=== PATIENT | male | born 1960 | race Caucasian/White ===

== ENCOUNTER 2019-04-20 20:43 | Emergency (ER) | payer BC, MEDICAID ==
[2019-04-20] MEDS ORDERED: TENIVAC VIAL IM ONE ×2 (20:57→21:39)
[2019-04-20] MEDS ORDERED: Lactated Ringers 1,000 ML IV SCH (21:00)
[2019-04-20] MEDS ORDERED: Lactated Ringers 1,000 ML IV ONE (21:38)
--- NOTE | 2019-04-20 21:48 | ERPHSYRPT ---
- History of Present Illness Time Seen by Provider: 04/20/19 20:53 Source: patient Exam Limitations: no limitations Patient Subjective Stated Complaint: Pt states, "I was at the [facility] getting ready to go in, and I tripped on a step, lost my balance and fell and hit my head on the concrete side". Triage Nursing Assessment: pt arrived with multiple face abrasions and knot/ edema above left eye approx golf ball sized from fall this evening at [facility], hitting concrete. Wounds cleansed with NS/Hibiclens mixture. Occurred: just prior to arrival Reason for Fall: lost balance Injuries/Pain Location: head, face Loss of Consciousness: no loss of consciousness (pt was going up steps when he lost balance and fell forward hitting his face onto concrete structure. ) Allergies/Adverse Reactions: No Known Drug Allergies Allergy (Verified 08/02/14 14:13) Home Medications: No Home Meds [No Home Meds] 1 ea UD 08/02/14 [History] Hx Tetanus, Diphtheria Vaccination/Date Given: No Hx Influenza Vaccination/Date Given: No Hx Pneumococcal Vaccination/Date Given: No Immunizations Up to Date: No - Review of Systems Constitutional: No Fever, No Chills Eyes: No Symptoms Ears, Nose, & Throat: No Symptoms, Nose Pain Respiratory: No Cough, No Dyspnea Cardiac: No Chest Pain, No Edema, No Syncope Abdominal/Gastrointestinal: No Abdominal Pain, No Nausea, No Vomiting, No Diarrhea Genitourinary Symptoms: No Dysuria Musculoskeletal: No Back Pain, No Neck Pain Skin: Other (lac/abrasion to nose and cheeks), No Rash Neurological: No Dizziness, No Focal Weakness, No Sensory Changes Psychological: No Symptoms Endocrine: No Symptoms All Other Systems: Reviewed and Negative - Past Medical History Pertinent Past Medical History: Yes Neurological History: No Pertinent History ENT History: No Pertinent History Cardiac History: No Pertinent History Respiratory History: No Pertinent History Endocrine Medical History: Other Musculoskeletal History: Other GI Medical History: Hernia History: No Pertinent History Psycho-Social History: No Pertinent History Male Reproductive Disorders: No Pertinent History Other Medical History: Gout. right foot osteomylitis - Past Surgical History Past Surgical History: Yes Neuro Surgical History: No Pertinent History Cardiac: No Pertinent History Respiratory: No Pertinent History Gastrointestinal: No Pertinent History Genitourinary: No Pertinent History Musculoskeletal: Orthopedic Surgery Male Surgical History: No Pertinent History Other Surgical History: right foot wound scraping - Social History Smoking Status: Never smoker Exposure to second hand smoke: Yes Drug Use: none Patient Lives Alone: No - Nursing Vital Signs Nursing Vital Signs: Initial Vital Signs Temperature 97.8 F 04/20/19 20:55 Pulse Rate 79 04/20/19 20:55 Respiratory Rate 17 04/20/19 20:55 Blood Pressure 191/85 04/20/19 20:55 O2 Sat by Pulse Oximetry 99 04/20/19 20:55 Pain Scale Pain Intensity 5 - Audrey Coma Score Best Eye Response (Audrey): (4) open spontaneously Best Verbal Response ([place]): (5) oriented Best Motor Response ([place]): (6) obeys commands Audrey Total: 15 - Physical Exam General Appearance: no apparent distress Head Injury: active bleeding (over bridge of nose), contusions (nosse), ecchymosis, lacerations (bridge of nose, left maxilla), swelling, tenderness Eye Exam: PERRL/EOMI ENT Exam: airway nml Neck Exam: normal inspection, No tenderness Respiratory/Chest Exam: normal breath sounds, No chest tenderness, No respiratory distress Cardiovascular Exam: normal heart sounds, regular rate/rhythm Gastrointestinal Exam: soft, No tenderness, No distention, No guarding, No ecchymosis Back Exam: normal inspection, No vertebral tenderness Extremity Exam: normal inspection, normal range of motion, pelvis stable, No deformities Neurologic Exam: alert, oriented x 3, cooperative, sensation nml, No motor deficits Skin Exam: normal color, warm, dry SpO2: 99 Procedures - Laceration/Wound Repair Face Wound Location: face Wound Length (cm): 3 Wound's Depth, Shape: irregular, into subcut Wound Explored: clean Irrigated: Yes (200mL NS) Hibiclens Prep: Yes Anesthesia: local, 1% Lidocaine Volume Anesthetic (ccs): 2 Wound Repaired With: sutures Suture Size/Type: 5-0, nylon Number of Sutures: 3 Layer Closure?: No Sterile Dressing Applied?: Yes - Course Nursing assessment & vital signs reviewed: Yes - CT Exams Head CT Interpretation: Negative Maxillofacial Bones CT Interpretation: Fracture (nasal bone) Cervical Spine CT Interpretation: Negative Ordered Tests: Active Orders 24 hr Category Date Time Status Accucheck STAT Care 02/01/20 20:57 Active IV Insertion STAT Care 04/20/19 20:57 Active NPO (ED) STAT Care 04/20/19 20:57 Active CERVICAL SPINE WO CONTRAST [CT] Stat Exams 04/20/19 20:58 Taken FACIAL BONES WO CONTRAST [CT] Stat Exams 04/20/19 20:58 Taken HEAD WITHOUT CONTRAST [CT] Stat Exams 04/20/19 20:58 Taken CBC W DIFF Stat Lab 04/20/19 20:57 Completed CMP Stat Lab 04/20/19 20:57 Completed PROTIME WITH INR Stat Lab 04/20/19 20:57 Completed PTT Stat Lab 04/20/19 20:57 Completed Medication Summary Generic Name Dose Route Start Last Admin Trade Name Freq PRN Reason Stop Dose Admin Cephalexin HCl 500 mg 04/20/19 22:42 Keflex 500 Mg PO 04/20/19 22:43 STAT ONE Lactated Ringer's 1,000 mls @ 100 mls/hr 04/20/19 21:00 04/20/19 21:43 Lactated Ringers IV 05/20/19 20:59 100 mls/hr .Q10H MARJORIE Administration Discontinued Medications Generic Name Dose Route Start Last Admin Trade Name Freq PRN Reason Stop Dose Admin Tetanus/Diphtheria Toxoids Adsorbed 0.5 ml 04/20/19 20:57 04/20/19 21:43 Tenivac Vial IM 04/20/19 20:58 0.5 ml .ONCE ONE Administration Tetanus/Diphtheria Toxoids Adsorbed Confirm 04/20/19 21:39 Tenivac Vial Administered 04/20/19 21:40 Dose 0.5 ml IM .STK-MED ONE Lab/Rad Data: Laboratory Result Diagrams 04/20/19 20:57 04/20/19 20:57 Laboratory Results 04/20/19 04/20/19 04/20/19 Range/Units 20:57 20:57 20:57 WBC 10.6 H (4.0-10.5) K/mm3 RBC 5.55 (4.1-5.6) M/mm3 Hgb 15.0 (12.5-18.0) gm/dl Hct 45.2 (42-50) % MCV 81.4 (78-100) fl MCH 27.0 (26-32) pg MCHC 33.2 (32-36) g/dl RDW 14.9 H (11.5-14.0) % Plt Count 224 (150-450) K/mm3 MPV 9.9 (7.5-11.0) fl Gran % 81.6 H (36.0-66.0) % Eos # (Auto) 0.12 (0-0.5) Absolute Lymphs (auto) 1.07 (1.0-4.6) Absolute Monos (auto) 0.74 (0.0-1.3) Lymphocytes % 10.1 L (24.0-44.0) % Monocytes % 7.0 (0.0-12.0) % Eosinophils % 1.1 (0.00-5.0) % Basophils % 0.2 (0.0-0.4) % Absolute Granulocytes 8.63 H (1.4-6.9) Basophils # 0.02 (0-0.4) PT 11.5 (8.83-12.87) SECONDS INR 1.02 (0.8-3.0) APTT 30.5 (24.1-36.1) SECONDS Sodium 140 (137-145) mmol/L Potassium 4.0 (3.5-5.1) mmol/L Chloride 100 (98-107) mmol/L Carbon Dioxide 30 (22-30) mmol/L Anion Gap 14.2 (5-15) MEQ/L BUN 17 (9-20) mg/dL Creatinine 1.04 (0.66-1.25) mg/dL Estimated GFR > 60.0 ML/MIN Glucose 108 H (74-106) mg/dL Calcium 9.1 (8.4-10.2) mg/dL Total Bilirubin 0.60 (0.2-1.3) mg/dL AST 36 (17-59) U/L ALT 39 (0-50) U/L Alkaline Phosphatase 103 (38-126) U/L Serum Total Protein 8.6 H (6.3-8.2) g/dL Albumin 4.4 (3.5-5.0) g/dL - Progress Progress: improved Progress Note: 04/20/19 22:46 Pt stable. declined pain meds. No further issues. Discussed with Dr.: Other (Dr. Andres, plastics at [facility]) Will see patient in: office - Departure Departure Disposition: Home Clinical Impression: Nasal bones, open fracture, Contusion of face Condition: Good Critical Care Time: Yes Critical Care Time(excluding separately billable procedures): Critical 30-74 mins Referrals: DOCTOR,NO FAMILY [Primary Care Provider] - Additional Instructions: Dr. Andres [address] Mimi ruiz [phone] Call to make appt at first opportunity. Prescriptions: Cephalexin Mh 500 mg [Keflex 500 mg] 500 mg PO TID 10 Days #30 capsule
[2019-04-20 22:05] LABS: Absolute Neutrophil Ct (ANC) 8.63 (1.4-6.9); BASOPHIL % 0.2 % (0.0-0.4); Basophil (Absolute #) 0.02 (0-0.4); Eosinophil % 1.1 % (0.00-5.0); Eosinophil (Absolute #) 0.12 (0-0.5); Hematocrit 45.2 % (42-50); Lymphocyte (Absolute #) 1.07 (1.0-4.6); Lymphocytes % 10.1 % (24.0-44.0); Mean Cell Volume 81.4 fl (78-100); Mean Corpuscular Hgb Concent. 33.2 g/dl (32-36); Mean Platelet Volume 9.9 fl (7.5-11.0); Monocyte (Absolute #) 0.74 (0.0-1.3); Neutrophil % 81.6 % (36.0-66.0); Platelet Count 224 K/mm3 (150-450); Red Blood Count 5.55 M/mm3 (4.1-5.6); Red Cell Distribution Width 14.9 % (11.5-14.0); White Blood Count 10.6 K/mm3 (4.0-10.5)
[2019-04-20 22:10] LABS: INR 1.02 (0.8-3.0); PROTIME 11.5 SECONDS (8.83-12.87)
[2019-04-20 22:13] LABS: PTT 30.5 SECONDS (24.1-36.1)
[2019-04-20 22:14] LABS: ALBUMIN 4.4 g/dL (3.5-5.0); ALKALINE PHOSPHATASE 103 U/L (38-126); ANION GAP 14.2 MEQ/L (5-15); BLOOD UREA NITROGEN 17 mg/dL (9-20); CHLORIDE 100 mmol/L (98-107); Calcium 9.1 mg/dL (8.4-10.2); Carbon Dioxide 30 mmol/L (22-30); Creatinine 1 1.04 mg/dL (0.66-1.25); Glucose 108 mg/dL (74-106); SGOT/AST 36 U/L (17-59); SGPT/ALT 39 U/L (0-50); SODIUM 140 mmol/L (137-145); Total Protein 8.6 g/dL (6.3-8.2)
[2019-04-20] MEDS ORDERED: KEFLEX 500 MG PO ONE (22:42)
[2019-04-20] MEDS ORDERED: KEFLEX 500 MG ONE (22:57)
[2019-04-20 23:11] VITALS: BP 145/83; PULSE 74; O2SAT 97
--- NOTE | 2019-04-21 08:01 | XRAY ---
Indication: Pain and epistaxis following fall. Multiple contiguous axial images obtained through the head without contrast. Comparison: None Ventriculosulcal pattern appears symmetric. No acute intracranial hemorrhage, abnormal extra-axial fluid collection, or mass effect. Fourth ventricle is midline without hydrocephalus. Taylor-white matter differentiation preserved. Moderate-sized left supraorbital/frontal soft tissue swelling/hematoma. Remaining bony calvarium intact. CT facial bones and CT cervical spine reported separately. Impression: 1. Left supraorbital/frontal soft tissue swelling/hematoma. 2. No acute intracranial abnormalities. Comment: Preliminary interpretation was made by [facility]. No critical discrepancy.
--- NOTE | 2019-04-21 08:02 | XRAY ---
Indication: Pain and epistaxis following fall. Multiple contiguous axial images obtained through the facial bones. Sagittal and coronal reformatted images obtained. Comparison: None A few bilateral dental amalgams produces beam artifact. Mildly displaced comminuted bilateral nasal bone fractures with mild angulation to the left and soft tissue swelling. There is also mild displaced/angulated fracture of the anterior nasal septum. Overlying soft tissue swelling. No other acute fracture, suspicious bony lesions, or radiopaque foreign body. Orbits including roof, lilly, and floors are intact. Paranasal sinuses and nasal passages are clear. There is mild nasal septal deviation to the right. Moderate left supraorbital soft tissue swelling/hematoma. External auditory canal demonstrates debris/cerumen bilaterally. CT head and CT cervical spine reported separately. Impression: 1. Bilateral nasal bone and nasal septum fractures as detailed. 2. Left supraorbital soft tissue swelling/hematoma. Comment: Preliminary interpretation was made by [facility]. No critical discrepancy.
--- NOTE | 2019-04-21 08:21 | XRAY ---
Indication: Pain and epistaxis following fall. Multiple contiguous axial images obtained through the cervical spine. Sagittal and coronal reformatted images obtained. Comparison: None Axial images negative for acute fracture, suspicious bony lesions, or spinal canal stenosis. There is minimal/mild multilevel degenerative endplate spurring throughout the cervical spine. Also mild multilevel bilateral degenerative facet hypertrophy. Sagittal and coronal reformatted images demonstrates normal alignment. No acute compression fracture, subluxation, or jumped facet. Normal appearing craniocervical junction. Base of the tongue/vallecula demonstrates irregular noncalcified soft tissue opacity measuring at least 1.2 x 2.8 x 1.2 cm in greatest AP, transverse, and CC projections concerning for mass. A few small bilateral cervical lymph nodes, largest on the right measuring 1.5 x 1.1 cm. Remaining visualized noncontrasted soft tissues including on apices unremarkable. CT facial bones and CT head reported separately. Impression: 1. Negative acute fracture/subluxation. 2. Multilevel degenerative changes. 3. Irregular soft tissue mass base of tongue/vallecula. Recommend direct laryngoscopic evaluation. 4. Small bilateral cervical lymph nodes possibly reactive. Metastasis not completely excluded given above soft tissue mass. Comment: Preliminary interpretation was made by [facility] who does not report soft tissue mass. I gave telephone report to Dr. Kumar in the ER at 0807 hrs. on April 21, 2019.
== END 2019-04-20 23:24 | disposition home or self-care (01) ==
LOC: ED 20:43
DX: S02.2XXB Fracture of nasal bones, initial encounter for open fracture (principal); S00.83XA Contusion of other part of head, initial encounter; W01.198A Fall on same level from slipping, tripping and stumbling with subsequent striking against other object, initial encounter; Y93.01 Activity, walking, marching and hiking
CPT/HCPCS: 36000; 36415; 70450; 70486; 72125; 80053; 82962; 85025; 85610; 85730; 90471; 90714; 99284; 99291; A9270-GY

== ENCOUNTER 2019-08-20 19:33 | Emergency (ER) | payer MEDICAID, OTHER ==
[2019-08-20] MEDS ORDERED: Sodium Chloride 0.9% 1000 ML 1,000 ML IV STA (19:39)
[2019-08-20] MEDS ORDERED: Sodium Chloride 0.9% 1000 ML 1,000 ML ONE (19:48)
[2019-08-20 19:56] LABS: Absolute Neutrophil Ct (ANC) 4.76 (1.4-6.9); BASOPHIL % 0.3 % (0.0-0.4); Basophil (Absolute #) 0.02 (0-0.4); Eosinophil % 1.2 % (0.00-5.0); Eosinophil (Absolute #) 0.09 (0-0.5); Hematocrit 46.4 % (42-50); Hemoglobin 15.6 gm/dl (12.5-18.0); Lymphocyte (Absolute #) 1.84 (1.0-4.6); Mean Cell Volume 82.7 fl (78-100); Mean Corpuscular Hemoglobin 27.8 pg (26-32); Mean Corpuscular Hgb Concent. 33.6 g/dl (32-36); Mean Platelet Volume 9.9 fl (7.5-11.0); Monocyte (Absolute #) 0.64 (0.0-1.3); Monocytes % 8.7 % (0.0-12.0); Neutrophil % 64.8 % (36.0-66.0); Platelet Count 230 K/mm3 (150-450); Red Blood Count 5.61 M/mm3 (4.1-5.6); Red Cell Distribution Width 14.8 % (11.5-14.0); White Blood Count 7.4 K/mm3 (4.0-10.5)
[2019-08-20 20:08] LABS: ALBUMIN 4.7 g/dL (3.5-5.0); ALKALINE PHOSPHATASE 107 U/L (38-126); ANION GAP 13.8 MEQ/L (5-15); BLOOD UREA NITROGEN 12 mg/dL (9-20); CHLORIDE 106 mmol/L (98-107); Calcium 9.7 mg/dL (8.4-10.2); Carbon Dioxide 26 mmol/L (22-30); Creatinine 1 0.88 mg/dL (0.66-1.25); Glucose 103 mg/dL (74-106); Potassium 3.5 mmol/L (3.5-5.1); SGOT/AST 33 U/L (17-59); SGPT/ALT 31 U/L (0-50); SODIUM 141 mmol/L (137-145); Total Protein 8.8 g/dL (6.3-8.2)
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
[2019-08-20] MEDS ORDERED: MORPHINE SULFATE 2 MG INJ IV ONE (20:46)
[2019-08-20] MEDS ORDERED: MORPHINE SULFATE 2 MG INJ ONE (20:48)
[2019-08-20] MEDS ORDERED: Zofran 4 MG/2 ML VIAL IV ONE (20:52)
[2019-08-20] MEDS ORDERED: Zofran 4 MG/2 ML VIAL ONE (20:52)
[2019-08-20 21:47] LABS: Appearance CLEAR (CLEAR); Bacteria NONE SEEN /HPF (NEGATIVE); Bilirubin NEGATIVE (NEGATIVE); Blood NEGATIVE Ery/ul (0-5); Glucose NEGATIVE (NEGATIVE); Ketones TRACE (NEGATIVE); Leukocyte Esterase NEGATIVE (NEGATIVE); Nitrite NEGATIVE (NEGATIVE); Protein,Urine Dip NEGATIVE (Negative); Specific Gravity 1.011 (1.005-1.025); Urobilinogen NEGATIVE mg/dL (0-1); WBC 0-2 /HPF (0-5)
[2019-08-20 22:01] VITALS: BP 146/76; PULSE 86; O2SAT 98
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
== END 2019-08-20 21:57 | disposition home or self-care (01) ==
LOC: ED 19:33
DX: K13.79 Other lesions of oral mucosa (principal); V43.52XA Car driver injured in collision with other type car in traffic accident, initial encounter; Y93.89 Activity, other specified; Y92.89 Other specified places as the place of occurrence of the external cause; M54.2 Cervicalgia; M47.892 Other spondylosis, cervical region; M50.920 Unspecified cervical disc disorder, mid-cervical region, unspecified level; R59.9 Enlarged lymph nodes, unspecified
CPT/HCPCS: 36000; 36415; 72125; 80053; 81001; 85025; 93041; 96360; 96374; 96375; 99285; J2270; J2405

== ENCOUNTER 2020-10-03 13:47 | Emergency (ER) | payer OTHER ==
[2020-10-03 13:57] VITALS: O2SAT 98
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
[2020-10-03] MEDS ORDERED: Hydromorphone 1 mg/ml Injection IM ONE (14:38)
[2020-10-03] MEDS ORDERED: ZOFRAN ODT 4 MG PO ONE (14:38)
[2020-10-03] MEDS ORDERED: Hydromorphone 1 mg/ml Injection ONE (14:44)
[2020-10-03] MEDS ORDERED: ZOFRAN ODT 4 MG ONE (14:44)
[2020-10-03] MEDS ORDERED: Catapres 0.1 MG PO ONE (15:17)
[2020-10-03] MEDS ORDERED: Catapres 0.1 MG ONE (15:20)
[2020-10-03 15:39] VITALS: BP 174/99; PULSE 92
--- NOTE | 2020-10-03 19:08 | XRAY ---
Indication: Pain following fall. Multiple contiguous axial images obtained through the head without contrast. Comparison: April 20, 2019. Ventriculosulcal pattern appears symmetric with age-appropriate global atrophy. No acute intracranial hemorrhage, abnormal extra-axial fluid collection, or mass effect. Fourth ventricle is midline without hydrocephalus. Taylor-white matter differentiation preserved. Bony calvarium intact. Visualized paranasal sinuses and mastoid air cells are clear. CT facial bones and CT cervical spine reported separately. Impression: Continued negative CT head without contrast exam. Comment: Preliminary interpretation was made by [facility]. No critical discrepancy.
--- NOTE | 2020-10-03 19:13 | XRAY ---
Indication: Pain following fall. Multiple contiguous axial images obtained through the cervical spine. Sagittal and coronal reformatted images obtained. Comparison: August 20, 2019. Axial images negative for acute fracture, suspicious bony lesions, or spinal canal stenosis. Stable mild multilevel degenerative endplate spurring and mild multilevel bilateral degenerative facet hypertrophy. Sagittal and coronal reformatted images again demonstrate slight straightening cervical lordosis, positional versus paraspinal spasm. No acute compression fracture, subluxation, or jumped facet. Normal appearing craniocervical junction. Visualized soft tissues again demonstrates stable soft tissue mass base of tongue/vallecula and prominent cervical lymph nodes bilaterally. Lung apices unremarkable. CT facial bones and CT head reported separately. Impression: 1. Stable cervical lordotic straightening, positional versus paraspinal spasm. 2. Continue negative for acute fracture/subluxation. 3. Grossly stable appearing soft tissue mass base of tongue/vallecula and prominent cervical lymph nodes. Comment: Preliminary interpretation was made by [facility]. No critical discrepancy.
--- NOTE | 2020-10-03 19:16 | XRAY ---
Indication: Pain following fall. Multiple contiguous axial images obtained through the lumbar spine. Sagittal and coronal reformatted images obtained. Comparison: None. Axial images negative for acute fracture, suspicious bony lesions, or spinal canal stenosis. Incidental mild multilevel bridging/nonbridging endplate osteophytes and tiny multilevel thoracolumbar Schmorl nodes, largest superior L5. Facets are symmetric with mild L4-S1 degenerative facet arthropathy. Incidental bilateral SI joint ankylosis. Sagittal and coronal reformatted images demonstrates normal alignment with vertebral body height/disc space is maintained. No acute compression fracture or subluxation. Visualized noncontrasted soft tissues demonstrates minimal aortoiliac calcifications and minimal sigmoid diverticulosis. Impression: 1. Negative acute fracture/subluxation. 2. Incidental multilevel degenerative changes, multilevel Schmorl nodes, bilateral SI joint ankylosis, minimal aortoiliac calcifications, and minimal sigmoid diverticulosis. Comment: Preliminary interpretation was made by [facility]. No critical discrepancy.
== END 2020-10-03 15:46 | disposition home or self-care (01) ==
LOC: ED 13:47
DX: M54.5 Low back pain (principal); M54.2 Cervicalgia; W18.39XA Other fall on same level, initial encounter; Y93.01 Activity, walking, marching and hiking; Y92.89 Other specified places as the place of occurrence of the external cause; Y99.9 Unspecified external cause status; I10 Essential (primary) hypertension
CPT/HCPCS: 70450; 72125; 72131; 96372; 99284; J1170; Q0162; A9270-GY

== ENCOUNTER 2021-10-13 12:29 | Emergency (ER) | payer MEDICARE, OTHER ==
--- NOTE | 2021-10-13 14:25 | XRAY ---
Indication: Status post fall. History ALS. Multiple contiguous axial images obtained through the head without contrast. Comparison: October 03, 2020. Again age-appropriate global atrophy. No acute intracranial hemorrhage, abnormal extra-axial fluid collection, or mass effect. Fourth ventricle is midline without hydrocephalus. Taylor-white matter differentiation preserved. Bony calvarium intact. There is now mild mucosal thickening both ethmoid and left sphenoid sinuses. Mastoid air cells are clear. Impression: Continued negative CT head without contrast exam. New mild paranasal sinus disease.
[2021-10-13] MEDS: TORAdol 30 mg Injection IV ONE (14:26)
[2021-10-13] MEDS ORDERED: TORAdol 30 mg Injection ONE (14:26)
--- NOTE | 2021-10-13 14:29 | XRAY ---
Indication: Pain following fall. Multiple contiguous axial images obtained through the cervical spine. Sagittal and coronal reformatted images obtained. Comparison: October 03, 2020. Axial images negative for acute fracture, suspicious bony lesions, or spinal canal stenosis. Stable mild multilevel degenerative endplate spurring and mild multilevel bilateral degenerative facet hypertrophy. Sagittal and coronal reformatted images again demonstrate reversal cervical lordosis centered at C5, positional versus paraspinal spasm. No acute compression fracture, subluxation, or jumped facet. Normal appearing craniocervical junction. Visualized soft tissues again demonstrates stable soft tissue mass base of tongue/vallecula. Visualized lung apices unremarkable. Impression: 1. Cervicolordotic reversal, positional versus paraspinal spasm. 2. Continue negative for acute fracture/subluxation. 3. Grossly stable appearing soft tissue mass base of tongue/vallecula.
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
[2021-10-13 15:05] LABS: Basophil (Absolute #) 0.03 x10^3/uL (0-0.4); Eosinophil % 0.2 % (0.00-5.0); Eosinophil (Absolute #) 0.02 x10^3/uL (0-0.5); Hematocrit 43.1 % (42-50); Hemoglobin 14.1 g/dL (12.5-18.0); Lymphocyte (Absolute #) 0.56 x10^3/uL (1.0-4.6); Lymphocytes % 5.3 % (24.0-44.0); Mean Cell Volume 85.5 fL (78-100); Mean Corpuscular Hgb Concent. 32.7 g/dL (32-36); Mean Platelet Volume 9.6 fL (7.5-11.0); Monocyte (Absolute #) 0.75 x10^3/uL (0.0-1.3); Monocytes % 7.1 % (0.0-12.0); Neutrophil % 86.2 % (36.0-66.0); Platelet Count 214 x10^3/uL (150-450); Red Blood Count 5.04 x10^6/uL (4.1-5.6); Red Cell Distribution Width 14.2 % (11.5-14.0); White Blood Count 10.6 x10^3/uL (4.0-10.5)
[2021-10-13 15:16] LABS: ALBUMIN 4.2 g/dL (3.5-5.0); ALKALINE PHOSPHATASE 104 U/L (38-126); ANION GAP 13.1 MEQ/L (5-15); BLOOD UREA NITROGEN 18 mg/dL (9-20); CHLORIDE 104 mmol/L (98-107); Carbon Dioxide 27 mmol/L (22-30); Creatinine 1 1.07 mg/dL (0.66-1.25); EST GLOMERULAR FILTRATION RATE > 60.0 ML/MIN; Glucose 125 mg/dL (74-106); Potassium 3.9 mmol/L (3.5-5.1); SGOT/AST 40 U/L (17-59); SGPT/ALT 36 U/L (0-50); SODIUM 140 mmol/L (137-145); Total Protein 8.1 g/dL (6.3-8.2)
[2021-10-13 15:30] LABS: Slide Review 1 YES
[2021-10-13 15:48] LABS: INFLUENZA A NEGATIVE (NEGATIVE); INFLUENZA B NEGATIVE (NEGATIVE); RESPIRATORY SYNCTIAL VIRUS NEGATIVE (Negative); SARS-CoV-2 Xpert Express NEGATIVE (NEGATIVE)
--- NOTE | 2021-10-13 16:08 | XRAY ---
Indication: Low oxygen saturation. Comparison: None Portable chest underinflated crowding both lung bases with minimal bibasilar atelectasis. Remaining heart and upper lungs unremarkable. Bony thorax intact with mild osteopenia and degenerative changes.
[2021-10-13 17:58] VITALS: BP 144/85; PULSE 78
[2021-10-13 22:34] VITALS: O2SAT 94
== END 2021-10-13 18:01 | disposition home or self-care (01) ==
LOC: ED 12:29
DX: S09.90XA Unspecified injury of head, initial encounter (principal); S16.1XXA Strain of muscle, fascia and tendon at neck level, initial encounter; W18.39XA Other fall on same level, initial encounter; Z91.81 History of falling; R51.9 Headache, unspecified; M54.2 Cervicalgia; G12.21 Amyotrophic lateral sclerosis; I10 Essential (primary) hypertension; Z79.899 Other long term (current) drug therapy; Z79.891 Long term (current) use of opiate analgesic; Z20.828 Contact with and (suspected) exposure to other viral communicable diseases
CPT/HCPCS: 0241U; 36000; 36415; 70450; 71045; 72125; 80053; 84484; 85025; 96374; 99284; J1885

== ENCOUNTER 2023-07-17 16:08 | Observation (INO) | payer MEDICARE, OTHER ==
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
[2023-07-17] MEDS: Sodium Chloride 0.9% 1000 ML 1,000 ML IV SCH (16:35)
[2023-07-17 17:05] LABS: Absolute Neutrophil Ct (ANC) 13.85 x10^3/uL (1.4-6.9); BASOPHIL % 0.1 % (0.0-0.4); Basophil (Absolute #) 0.02 x10^3/uL (0-0.4); Eosinophil % 0.3 % (0.00-5.0); Eosinophil (Absolute #) 0.04 x10^3/uL (0-0.5); Hematocrit 40.7 % (42-50); Hemoglobin 13.4 g/dL (12.5-18.0); IMMATURE GRAN # 0.04 x10^3u/L (0.00-0.03); IMMATURE GRAN % 0.3 % (0.00-0.4); Lymphocyte (Absolute #) 0.36 x10^3/uL (1.0-4.6); Lymphocytes % 2.4 % (24.0-44.0); Mean Cell Volume 86.2 fL (78-100); Mean Corpuscular Hemoglobin 28.4 pg (26-32); Mean Corpuscular Hgb Concent. 32.9 g/dL (32-36); Mean Platelet Volume 9.9 fL (7.5-11.0); Monocyte (Absolute #) 0.68 x10^3/uL (0.0-1.3); Monocytes % 4.5 % (0.0-12.0); Neutrophil % 92.4 % (36.0-66.0); Platelet Count 193 x10^3/uL (150-450); Red Blood Count 4.72 x10^6/uL (4.1-5.6); Red Cell Distribution Width 14.3 % (11.5-14.0)
--- NOTE | 2023-07-17 17:16 | XRAY ---
Indication: Fever and cough. Comparison: October 13, 2021 Portable chest demonstrates new mild left base infiltrate/atelectasis without consolidation/large effusion. Remaining heart and right lung unremarkable. Bony thorax intact again with osteopenia and degenerative changes.
[2023-07-17 17:19] LABS: ANION GAP 14.7 MEQ/L (5-15); BILIRUBIN,TOTAL 0.8 mg/dL (0.2-1.3); Calcium 9.6 mg/dL (8.4-10.2); Creatinine 1 0.82 mg/dL (0.66-1.25); EST GLOMERULAR FILTRATION RATE 99.9 ML/MIN; Potassium 3.7 mmol/L (3.5-5.1); Total Protein 7.6 g/dL (6.3-8.2)
[2023-07-17 17:42] LABS: INFLUENZA A NEGATIVE (NEGATIVE); INFLUENZA B NEGATIVE (NEGATIVE); RESPIRATORY SYNCTIAL VIRUS NEGATIVE (NEGATIVE); SARS-CoV-2 Xpert Express NEGATIVE (NEGATIVE)
[2023-07-17 17:52] LABS: Slide Review 1 YES
[2023-07-17 18:15] LABS: Appearance Clear (Clear); Bacteria None Seen /HPF (None Seen); Bilirubin Negative (Negative); Blood Negative (Negative); Epithelial Cells None Seen /HPF (None Seen); Glucose, Urine Negative (Negative); Hyaline Casts NONE SEEN /LPF (0-2); Ketones Negative (Negative); Leukocyte Esterase Trace (Negative); Nitrite Negative (Negative); Ph 6.5 (4.6-8.0); Protein,Urine Dip Negative (Negative); RBC 0-2 /HPF (0-5); Specific Gravity 1.015 (1.005-1.030)
[2023-07-17 18:17] LABS: ADD URINE CULTURE? YES (NO)
[2023-07-17] MEDS ORDERED: ROCEPHIN 1 GM / 100 ML NaCl 0 GM/0 ML IVPB IV ONE (18:28)
[2023-07-17] MEDS: ROCEPHIN 1 GM / 100 ML NaCl 1 GM/100 ML IVPB IV ONE (18:33)
[2023-07-17] MEDS ORDERED: Zofran 4 MG/2 ML VIAL IV PRN (19:36)
[2023-07-17] MEDS ORDERED: Sodium Chloride 0.9% 1000 ML 1,000 ML IV SCH (19:36)
[2023-07-17] MEDS ORDERED: TYLENOL 325 MG PO PRN (19:36)
[2023-07-17] MEDS: ROCEPHIN 1 GM / 100 ML NaCl 1 GM/100 ML IVPB IV SCH (19:47)
[2023-07-17] MEDS ORDERED: NORCO 5/325 MG PO PRN (20:26)
[2023-07-17] MEDS ORDERED: NON-FORMULARY ITEM (Mv-Mn/Iron/Folic Acid/Herb 190 [Vitamin D3 Complete Caplet] 1 EACH Tab PO SCH (20:30)
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
[2023-07-17] MEDS ORDERED: Tessalon Perles 100 MG PO PRN (20:59)
[2023-07-17] MEDS ORDERED: NON-FORMULARY ITEM (Cholecalciferol (Vitamin D3) [Vitamin D3] 1,250 MCG Tablet) PO SCH (21:00)
[2023-07-17] MEDS ORDERED: PROVENTIL 2.5 MG/3 ML NEB IH PRN (21:02)
[2023-07-17] MEDS ORDERED: ZOLOFT 50 MG TABLET ONE (21:14)
[2023-07-17] MEDS: NON-FORMULARY ITEM (Sertraline Hcl [Zoloft] 100 MG Tablet) PO SCH (21:45)
[2023-07-17] MEDS: Mucinex 600MG ER Tabs PO SCH (21:45)
[2023-07-17] MEDS: Neurontin PO SCH (21:45)
[2023-07-17] MEDS ORDERED: NON-FORMULARY ITEM (Gabapentin [Gabapentin] 600 MG Tablet) PO SCH (22:00)
[2023-07-17] MEDS: RILUZOLE 50 MG PO SCH (22:14)
[2023-07-18 04:24] LABS: Absolute Neutrophil Ct (ANC) 11.76 x10^3/uL (1.4-6.9); BASOPHIL % 0.2 % (0.0-0.4); Basophil (Absolute #) 0.03 x10^3/uL (0-0.4); Eosinophil % 0.1 % (0.00-5.0); Eosinophil (Absolute #) 0.02 x10^3/uL (0-0.5); Hematocrit 33.9 % (42-50); Hemoglobin 11.2 g/dL (12.5-18.0); IMMATURE GRAN # 0.05 x10^3u/L (0.00-0.03); IMMATURE GRAN % 0.4 % (0.00-0.4); Lymphocyte (Absolute #) 0.94 x10^3/uL (1.0-4.6); Lymphocytes % 6.8 % (24.0-44.0); Mean Cell Volume 86.5 fL (78-100); Mean Corpuscular Hemoglobin 28.6 pg (26-32); Mean Platelet Volume 10.1 fL (7.5-11.0); Monocyte (Absolute #) 1.07 x10^3/uL (0.0-1.3); Monocytes % 7.7 % (0.0-12.0); Neutrophil % 84.8 % (36.0-66.0); Platelet Count 164 x10^3/uL (150-450); Red Blood Count 3.92 x10^6/uL (4.1-5.6); Red Cell Distribution Width 14.7 % (11.5-14.0); White Blood Count 13.9 x10^3/uL (4.0-10.5)
[2023-07-18 04:56] LABS: ALBUMIN 3.1 g/dL (3.5-5.0); ANION GAP 8.9 MEQ/L (5-15); BILIRUBIN,TOTAL 0.8 mg/dL (0.2-1.3); Creatinine 1 0.69 mg/dL (0.66-1.25); EST GLOMERULAR FILTRATION RATE 105.3 ML/MIN; Potassium 3.6 mmol/L (3.5-5.1); Total Protein 6.2 g/dL (6.3-8.2)
--- NOTE | 2023-07-18 05:40 | PCM.NOTE ---
Date and Time: 07/18/23 0533 Subjective Assessment: 62 year old male admitted 07/17/23 admitted with sepsis secondary to pneumonia after experiencing a generalized weakness, fever, and a cough. Patient was hypoxic, tachycardic, febrile, and tachypneic on arrival to ED with spo2 at 84- 88% on RA, recovering to 91% when placed on 2L. Labs remarkable for leuko cytosis and a weakly positive monoscreen. CXR demonstrating a LLL infiltrate. Current treatment with Ceftriaxone/azithromycin. 07/18/23: Met with patient bedside. Endorses that dyspnea and cough have improved. Patient is on RA which is his baseline. Lungs clear on auscultation. Patient afebrile overnight. WBC downtrending. Per RN report, patient did choke during medication administration. Will have ST evaluate. Patient states that he does not normally have any issues with choking on food, water, or medications. Denies fever,abdominal pain, THOMPSON, dizziness, N/V/D. Does endorse pain in bilateral feet. - Review of Systems Constitutional: No Symptoms Eyes: No Symptoms Ears, Nose, & Throat: No Symptoms Respiratory: Cough, Short Of Breath Cardiac: No Symptoms Abdominal/Gastrointestinal: No Symptoms Genitourinary Symptoms: No Symptoms Musculoskeletal: No Symptoms Skin: No Symptoms Neurological: Other (pain bilateral feet) Psychological: No Symptoms Endocrine: No Symptoms Hematologic/Lymphatic: No Symptoms Immunological/Allergic: No Symptoms Objective Exam General Appearance: no apparent distress Neurologic Exam: alert, oriented x 3, cooperative, motor weakness Skin Exam: normal color Eye Exam: PERRL Ears, Nose, Throat Exam: moist mucous membranes Neck Exam: full range of motion Respiratory Exam: normal breath sounds, lungs clear Cardiovascular Exam: regular rate/rhythm, normal heart sounds Gastrointestinal/Abdomen Exam: soft, normal bowel sounds Extremity Exam: limited range of motion (BUE/BLE) Back Exam: decreased range of motion Male Genitalia Exam: deferred Rectal Exam: deferred Objective Data Vital Signs: Vital Signs - 24 hr Temp Pulse Resp BP BP Pulse Ox 07/18/23 04:00 97.8 F 67 19 109/60 100 07/18/23 02:00 98.3 F 78 18 110/55 94 L 07/17/23 21:03 95 07/17/23 21:02 104 H 24 95 07/17/23 20:12 98.6 F 107 H 20 131/60 96 07/17/23 19:36 96 07/17/23 19:30 106 H 20 118/66 94 L 07/17/23 19:00 110 H 28 H 123/63 93 L 07/17/23 18:30 114 H 25 H 116/68 92 L 07/17/23 18:00 102 H 27 H 110/69 92 L 07/17/23 17:30 110 H 25 H 117/62 91 L 07/17/23 17:00 106 H 26 H 97/80 91 L 07/17/23 16:41 92 L 07/17/23 16:30 116 H 23 112/70 92 L 07/17/23 16:13 101.9 F 129 H 24 111/95 93 L 07/17/23 16:12 122 H 20 111/95 91 L Pain Assessment - Last Documented Pain Intensity 0 Intake and Output: Intake & Output 07/15/23 07/16/23 07/17/23 07/18/23 11:59 11:59 11:59 11:59 Intake Total 0 Balance 0 Weight 66.8 kg Lab Results: Lab Results-Last 24 Hours 07/17/23 07/17/23 07/17/23 Range/Units 16:45 16:45 16:49 WBC 15.0 H (4.0-10.5) x10^3/uL RBC 4.72 (4.1-5.6) x10^6/uL Hgb 13.4 (12.5-18.0) g/dL Hct 40.7 L (42-50) % MCV 86.2 (78-100) fL MCH 28.4 (26-32) pg MCHC 32.9 (32-36) g/dL RDW 14.3 H (11.5-14.0) % Plt Count 193 (150-450) x10^3/uL MPV 9.9 (7.5-11.0) fL Gran % 92.4 H (36.0-66.0) % Immature Gran % (Auto) 0.3 (0.00-0.4) % Nucleat RBC Rel Count 0.0 (0.00-0.1) % Eos # (Auto) 0.04 (0-0.5) x10^3/uL Immature Gran # (Auto) 0.04 H (0.00-0.03) x10^3u/L Absolute Lymphs (auto) 0.36 L (1.0-4.6) x10^3/uL Absolute Monos (auto) 0.68 (0.0-1.3) x10^3/uL Absolute Nucleated RBC 0.00 (0.00-0.01) x10^3u/L Lymphocytes % 2.4 L (24.0-44.0) % Monocytes % 4.5 (0.0-12.0) % Eosinophils % 0.3 (0.00-5.0) % Basophils % 0.1 (0.0-0.4) % Absolute Granulocytes 13.85 H (1.4-6.9) x10^3/uL Basophils # 0.02 (0-0.4) x10^3/uL Sodium (135-145) mmol/L Potassium (3.5-5.1) mmol/L Chloride (98-107) mmol/L Carbon Dioxide (22-30) mmol/L Anion Gap (5-15) MEQ/L BUN (9-20) mg/dL Creatinine (0.66-1.25) mg/dL Estimated GFR ML/MIN Glucose (74-106) mg/dL Lactic Acid (0.4-2.0) Calcium (8.4-10.2) mg/dL Total Bilirubin (0.2-1.3) mg/dL AST (17-59) U/L ALT (0-50) U/L Alkaline Phosphatase (38-126) U/L NT-Pro-B Natriuret Pep (<300) pg/mL Serum Total Protein (6.3-8.2) g/dL Albumin (3.5-5.0) g/dL Urine Color (Yellow) Urine Appearance (Clear) Urine pH (4.6-8.0) Ur Specific [place] (1.005-1.030) Urine Protein (Negative) Urine Glucose (UA) (Negative) mg/dL Urine Ketones (Negative) Urine Blood (Negative) Urine Nitrite (Negative) Urine Bilirubin (Negative) Urine Urobilinogen (0.2) mg/dL Ur Leukocyte Esterase (Negative) U Hyaline Cast (Auto) (0-2) /LPF Urine Microscopic RBC (0-5) /HPF Urine Microscopic WBC (0-5) /HPF Ur Epithelial Cells (None Seen) /HPF Urine Bacteria (None Seen) /HPF Urine Culture Reflexed (NO) Monoscreen (NEGATIVE) Influenza Type A Ag NEGATIVE (NEGATIVE) Influenza Type B Ag NEGATIVE (NEGATIVE) RSV (PCR) NEGATIVE (NEGATIVE) SARS-CoV-2 (PCR) NEGATIVE (NEGATIVE) Group A Strep Antibody NOT DETECTED (NEGATIVE) Slides for Path Review YES 07/17/23 07/17/23 07/17/23 Range/Units 16:49 16:56 17:00 WBC (4.0-10.5) x10^3/uL RBC (4.1-5.6) x10^6/uL Hgb (12.5-18.0) g/dL Hct (42-50) % MCV (78-100) fL MCH (26-32) pg MCHC (32-36) g/dL RDW (11.5-14.0) % Plt Count (150-450) x10^3/uL MPV (7.5-11.0) fL Gran % (36.0-66.0) % Immature Gran % (Auto) (0.00-0.4) % Nucleat RBC Rel Count (0.00-0.1) % Eos # (Auto) (0-0.5) x10^3/uL Immature Gran # (Auto) (0.00-0.03) x10^3u/L Absolute Lymphs (auto) (1.0-4.6) x10^3/uL Absolute Monos (auto) (0.0-1.3) x10^3/uL Absolute Nucleated RBC (0.00-0.01) x10^3u/L Lymphocytes % (24.0-44.0) % Monocytes % (0.0-12.0) % Eosinophils % (0.00-5.0) % Basophils % (0.0-0.4) % Absolute Granulocytes (1.4-6.9) x10^3/uL Basophils # (0-0.4) x10^3/uL Sodium 142 (135-145) mmol/L Potassium 3.7 (3.5-5.1) mmol/L Chloride 105 (98-107) mmol/L Carbon Dioxide 26 (22-30) mmol/L Anion Gap 14.7 (5-15) MEQ/L BUN 17 (9-20) mg/dL Creatinine 0.82 (0.66-1.25) mg/dL Estimated GFR 99.9 ML/MIN Glucose 166 H (74-106) mg/dL Lactic Acid 1.7 (0.4-2.0) Calcium 9.6 (8.4-10.2) mg/dL Total Bilirubin 0.80 (0.2-1.3) mg/dL AST 38 (17-59) U/L ALT 28 (0-50) U/L Alkaline Phosphatase 117 (38-126) U/L NT-Pro-B Natriuret Pep (<300) pg/mL Serum Total Protein 7.6 (6.3-8.2) g/dL Albumin 4.0 (3.5-5.0) g/dL Urine Color (Yellow) Urine Appearance (Clear) Urine pH (4.6-8.0) Ur Specific [place] (1.005-1.030) Urine Protein (Negative) Urine Glucose (UA) (Negative) mg/dL Urine Ketones (Negative) Urine Blood (Negative) Urine Nitrite (Negative) Urine Bilirubin (Negative) Urine Urobilinogen (0.2) mg/dL Ur Leukocyte Esterase (Negative) U Hyaline Cast (Auto) (0-2) /LPF Urine Microscopic RBC (0-5) /HPF Urine Microscopic WBC (0-5) /HPF Ur Epithelial Cells (None Seen) /HPF Urine Bacteria (None Seen) /HPF Urine Culture Reflexed (NO) Monoscreen WEAKLY POSITIVE (NEGATIVE) Influenza Type A Ag (NEGATIVE) Influenza Type B Ag (NEGATIVE) RSV (PCR) (NEGATIVE) SARS-CoV-2 (PCR) (NEGATIVE) Group A Strep Antibody (NEGATIVE) Slides for Path Review 07/17/23 07/18/23 07/18/23 Range/Units 17:58 04:18 04:18 WBC 13.9 H (4.0-10.5) x10^3/uL RBC 3.92 L (4.1-5.6) x10^6/uL Hgb 11.2 L (12.5-18.0) g/dL Hct 33.9 L (42-50) % MCV 86.5 (78-100) fL MCH 28.6 (26-32) pg MCHC 33.0 (32-36) g/dL RDW 14.7 H (11.5-14.0) % Plt Count 164 (150-450) x10^3/uL MPV 10.1 (7.5-11.0) fL Gran % 84.8 H (36.0-66.0) % Immature Gran % (Auto) 0.4 (0.00-0.4) % Nucleat RBC Rel Count 0.0 (0.00-0.1) % Eos # (Auto) 0.02 (0-0.5) x10^3/uL Immature Gran # (Auto) 0.05 H (0.00-0.03) x10^3u/L Absolute Lymphs (auto) 0.94 L (1.0-4.6) x10^3/uL Absolute Monos (auto) 1.07 (0.0-1.3) x10^3/uL Absolute Nucleated RBC 0.00 (0.00-0.01) x10^3u/L Lymphocytes % 6.8 L (24.0-44.0) % Monocytes % 7.7 (0.0-12.0) % Eosinophils % 0.1 (0.00-5.0) % Basophils % 0.2 (0.0-0.4) % Absolute Granulocytes 11.76 H (1.4-6.9) x10^3/uL Basophils # 0.03 (0-0.4) x10^3/uL Sodium 141 (135-145) mmol/L Potassium 3.6 (3.5-5.1) mmol/L Chloride 107 (98-107) mmol/L Carbon Dioxide 29 (22-30) mmol/L Anion Gap 8.9 (5-15) MEQ/L BUN 16 (9-20) mg/dL Creatinine 0.69 (0.66-1.25) mg/dL Estimated GFR 105.3 ML/MIN Glucose 108 H (74-106) mg/dL Lactic Acid (0.4-2.0) Calcium 9.0 (8.4-10.2) mg/dL Total Bilirubin 0.80 (0.2-1.3) mg/dL AST 42 (17-59) U/L ALT 30 (0-50) U/L Alkaline Phosphatase 98 (38-126) U/L NT-Pro-B Natriuret Pep 288 (<300) pg/mL Serum Total Protein 6.2 L (6.3-8.2) g/dL Albumin 3.1 L (3.5-5.0) g/dL Urine Color Yellow (Yellow) Urine Appearance Clear (Clear) Urine pH 6.5 (4.6-8.0) Ur Specific [place] 1.015 (1.005-1.030) Urine Protein Negative (Negative) Urine Glucose (UA) Negative (Negative) mg/dL Urine Ketones Negative (Negative) Urine Blood Negative (Negative) Urine Nitrite Negative (Negative) Urine Bilirubin Negative (Negative) Urine Urobilinogen 1.0 A (0.2) mg/dL Ur Leukocyte Esterase Trace A (Negative) U Hyaline Cast (Auto) NONE SEEN (0-2) /LPF Urine Microscopic RBC 0-2 (0-5) /HPF Urine Microscopic WBC 3-5 (0-5) /HPF Ur Epithelial Cells None Seen (None Seen) /HPF Urine Bacteria None Seen (None Seen) /HPF Urine Culture Reflexed YES (NO) Monoscreen (NEGATIVE) Influenza Type A Ag (NEGATIVE) Influenza Type B Ag (NEGATIVE) RSV (PCR) (NEGATIVE) SARS-CoV-2 (PCR) (NEGATIVE) Group A Strep Antibody (NEGATIVE) Slides for Path Review Radiology Exams: Radiology Procedures Category Date Time Status CHEST 1 VIEW (PORTABLE) Stat Exams 07/17/23 16:32 Completed Assessment/Plan (1) Sepsis Current Visit: Yes Status: Acute Assessment & Plan: 2/2 to pneumonia -Received 1L fluid bolus -LA WNL -Blood and urine cultures pending -Rocephin and azithromycin started in ED, will continue, follow cultures -SPO2 goal >92 %, patient RA at baseline -pt now at baseline -WBC trend improving 13.9<15.0, will continue to monitor -CXR with infiltrates (2) Acute respiratory failure with hypoxemia Current Visit: Yes Status: Acute Assessment & Plan: -Secondary to pneumonia -Tele-Supplemental oxygen with spo2 goal > 92% -ABG prn if significant hypoxia/lethargy -viral panel negative -CXR with infiltrate Code(s): J96.01 - ACUTE RESPIRATORY FAILURE WITH HYPOXIA (3) ALS (amyotrophic lateral sclerosis) Current Visit: Yes Status: Acute Assessment & Plan: -noted, adds complexity, continue appropriate home medications -On Hospice, Code statue : chemical and CPR but no intubation/ventilation -Will have ST evaluate patient due to choking on med pass Code(s): G12.21 - AMYOTROPHIC LATERAL SCLEROSIS (4) Community acquired pneumonia Current Visit: Yes Status: Acute Assessment & Plan: -see sepsis -Ceftriaxone/azithromycin -supplemental oxygen with goal spo2 >92% -RT eval with neb/inh -sputum culture pending collection Code(s): J18.9 - PNEUMONIA, UNSPECIFIED ORGANISM (5) Hypertension Current Visit: No Status: Acute Assessment & Plan: -stable, no home meds, will monitor Code(s): I10 - ESSENTIAL (PRIMARY) HYPERTENSION (6) Leukocytosis Current Visit: Yes Status: Acute Assessment & Plan: -secondary to pneumonia - trending down, continue to monitor Code(s): D72.829 - ELEVATED WHITE BLOOD CELL COUNT, UNSPECIFIED (7) Mononucleosis Current Visit: Yes Status: Acute Assessment & Plan: -weakly positive -supportive therapy -monitor labs VTE: Lovenox PPI: protonix Dispo: 2-3 days Code(s): B27.90 - INFECTIOUS MONONUCLEOSIS, UNSPECIFIED WITHOUT COMPLICATION
[2023-07-18] MEDS ORDERED: Sodium Chloride 0.9% 1000 ML 1,000 ML ONE (05:55)
[2023-07-18] MEDS: PROTONIX 40 MG IV IV SCH (10:53)
[2023-07-18] MEDS: ENOXAPARIN SODIUM SQ SCH (10:53)
[2023-07-18] MEDS: Zithromax 500 MG/ 250 ML NaCl Premix 500 MG/250 ML IVPB IV SCH (10:53)
[2023-07-18] MEDS: Transderm Scop 1.5MG Patch TD SCH (10:53)
[2023-07-18] MEDS: ROCEPHIN 1 GM / 100 ML NaCl 1 GM/100 ML IVPB IV SCH (21:45)
[2023-07-18] MEDS: ZOLOFT 50 MG TABLET PO SCH (21:46)
[2023-07-19] MEDS: ULTRAM 50 MG PO PRN (04:21)
[2023-07-19 05:06] LABS: BASOPHIL % 0.2 % (0.0-0.4); Basophil (Absolute #) 0.02 x10^3/uL (0-0.4); Eosinophil (Absolute #) 0.17 x10^3/uL (0-0.5); Hematocrit 35.1 % (42-50); Hemoglobin 11.5 g/dL (12.5-18.0); IMMATURE GRAN # 0.03 x10^3u/L (0.00-0.03); IMMATURE GRAN % 0.4 % (0.00-0.4); Lymphocyte (Absolute #) 0.89 x10^3/uL (1.0-4.6); Lymphocytes % 10.5 % (24.0-44.0); Mean Cell Volume 87.1 fL (78-100); Mean Corpuscular Hemoglobin 28.5 pg (26-32); Mean Corpuscular Hgb Concent. 32.8 g/dL (32-36); Mean Platelet Volume 10.5 fL (7.5-11.0); Monocyte (Absolute #) 0.58 x10^3/uL (0.0-1.3); Monocytes % 6.8 % (0.0-12.0); Neutrophil % 80.1 % (36.0-66.0); Platelet Count 166 x10^3/uL (150-450); Red Blood Count 4.03 x10^6/uL (4.1-5.6); Red Cell Distribution Width 14.3 % (11.5-14.0); White Blood Count 8.5 x10^3/uL (4.0-10.5)
--- NOTE | 2023-07-19 05:11 | PCM.NOTE ---
Date and Time: 07/19/23 0509 Subjective Assessment: 62 year old male admitted 07/17/23 admitted with sepsis secondary to pneumonia after experiencing a generalized weakness, fever, and a cough. Patient was hypoxic, tachycardic, febrile, and tachypneic on arrival to ED with spo2 at 84- 88% on RA, recovering to 91% when placed on 2L. Labs remarkable for leuko cytosis and a weakly positive monoscreen. CXR demonstrating a LLL infiltrate. Current treatment with Ceftriaxone/azithromycin. WBC improving, patient is now afebrile. 07/19/23: Met with patient bedside. Endorses improvement in dyspnea and cough. Now at baseline RA. He does report left groin pain this morning which started yesterday with accompanied edema. Plan for US. Denies fever,cough, sob, cp, abdominal pain, THOMPSON, dizziness, N/V/D. - Review of Systems Constitutional: No Symptoms Eyes: No Symptoms Ears, Nose, & Throat: No Symptoms Respiratory: No Symptoms Cardiac: No Symptoms Abdominal/Gastrointestinal: No Symptoms Genitourinary Symptoms: Incontinence, Testicle Pain (Left groin/testicular pain) Musculoskeletal: No Symptoms Skin: No Symptoms Neurological: No Symptoms Psychological: No Symptoms Endocrine: No Symptoms Hematologic/Lymphatic: No Symptoms Immunological/Allergic: No Symptoms Objective Exam General Appearance: no apparent distress Neurologic Exam: alert, oriented x 3, cooperative, motor weakness Skin Exam: pale Eye Exam: PERRL Ears, Nose, Throat Exam: moist mucous membranes Neck Exam: full range of motion Respiratory Exam: normal breath sounds, lungs clear Cardiovascular Exam: regular rate/rhythm, normal heart sounds Gastrointestinal/Abdomen Exam: soft, normal bowel sounds Extremity Exam: limited range of motion Back Exam: decreased range of motion Male Genitalia Exam: testicular tenderness, other (left groin/scrotal tenderness) Objective Data Vital Signs: Vital Signs - 24 hr Temp Pulse Resp BP Pulse Ox 07/19/23 04:00 99.0 F 57 L 18 114/58 94 L 07/19/23 00:00 98.5 F 64 25 H 117/61 94 L 07/18/23 20:00 98.8 F 66 20 105/59 97 07/18/23 19:30 88 18 97 07/18/23 16:00 98.7 F 59 L 19 110/57 94 L 07/18/23 13:20 93 L 07/18/23 11:42 97.6 F 73 18 121/58 97 07/18/23 08:47 97 07/18/23 07:41 97 07/18/23 07:15 70 16 99 07/18/23 06:41 97.4 F 63 14 110/61 99 Pain Assessment - Last Documented Pain Intensity 7 Intake and Output: Intake & Output 07/16/23 07/17/23 07/18/23 07/19/23 11:59 11:59 11:59 11:59 Intake Total 700 2817 Output Total 600 750 Balance 100 2067 Weight 68.9 kg Radiology Exams: Radiology Procedures Category Date Time Status CHEST 1 VIEW (PORTABLE) Stat Exams 07/17/23 16:32 Completed Multi-Disciplinary Progress Notes: Multi-Disciplinary Progress Notes 07/18/23 14:09 Case Management Note by Gunjan Cueva S/W WITH PATIENT, JAYY, ALVIN, AND NUMEROUS OTHER FAMILY MEMBERS IN ROOM. DISCUSSED THE IMPORTANCE OF THE SUPPORT OF HOSPICE AND FAMILY IN THE HOME. PATIENT HAD NO EQUIPMENT IN HOME AND WAS SLEEPING IN [place]. FAMILY EXPRESSED THE DIFFICULTY IN CHANGING AND GETTING PATIENT UP AND DOWN. EXPLAINED THAT CONCERNED ABOUT PATIENT AND STAFF/FAMILY SAFETY IN HOME WHEN CARING FOR PATIENT. PATIENT AGREED TO GETTING THE EQUIPMENT IN HOME THROUGH HOSPICE (IE. HOSPITAL BED, LIFT) AND THAT IF [facility] UNABLE TO TAKE BACK, WOULD BE AGREEABLE TO ANOTHER HOSPICE. BUT HE WOULD REALLY LIKE TO KEEP [facility]. CALLED [facility] AND SPOKE WITH SADIE OLIVER, DIRECTOR AND SHE STATED THAT SHE WOULD BE ABLE TO ACCEPT PATIENT BACK IF HE HAD EQUIPMENT. FAMILY WILL NEED TO MOVE SOME FURNITURE OUT WHEN PATIENT DISCHARGED IN ORDER TO GET EQUIPMENT IN APARTMENT WHEN DISCHARGED. [facility] WILL BE THERE MON -FRI. Initialized on 07/18/23 14:09 - END OF NOTE Assessment/Plan (1) Sepsis Current Visit: Yes Status: Acute Assessment & Plan: / to pneumonia -Received 1L fluid bolus -LA WNL -Blood and urine cultures pending -Rocephin and azithromycin started in ED, will continue, follow cultures -SPO2 goal >92 %, patient RA at baseline -pt now at baseline -WBC trend improving 13.9<15.0, will continue to monitor -CXR with infiltrates 07/18: -No longer meets criteria -WBC now wnl, LA WNL, vitals unremarkable -Continue ceftriaxone/azith - convert to cefpodoxime on discharge/last day today for azithromycin (2) Acute respiratory failure with hypoxemia Current Visit: Yes Status: Acute Assessment & Plan: -Secondary to pneumonia -Tele-Supplemental oxygen with spo2 goal > 92% -ABG prn if significant hypoxia/lethargy -viral panel negative -CXR with infiltrate 07/18: -at baseline RA Code(s): J96.01 - ACUTE RESPIRATORY FAILURE WITH HYPOXIA (3) ALS (amyotrophic lateral sclerosis) Current Visit: Yes Status: Acute Assessment & Plan: -noted, adds complexity, continue appropriate home medications -On Hospice, Code statue : chemical and CPR but no intubation/ventilation -Will have ST evaluate patient due to choking on med pass 07/18: -ST recs for honey thickened liquids, pureed diet, and crushed meds with applesauce. Patient will return home on hospice care Code(s): G12.21 - AMYOTROPHIC LATERAL SCLEROSIS (4) Community acquired pneumonia Current Visit: Yes Status: Acute Assessment & Plan: -see sepsis -Ceftriaxone/azithromycin -supplemental oxygen with goal spo2 >92% -RT eval with neb/inh -sputum culture pending collection 07/18: -RA -continue abx, convert to cefpodoxime on discharge Code(s): J18.9 - PNEUMONIA, UNSPECIFIED ORGANISM (5) Hypertension Current Visit: No Status: Acute Assessment & Plan: -stable, no home meds, will monitor Code(s): I10 - ESSENTIAL (PRIMARY) HYPERTENSION (6) Leukocytosis Current Visit: Yes Status: Acute Assessment & Plan: -secondary to pneumonia - trending down, continue to monitor Code(s): D72.829 - ELEVATED WHITE BLOOD CELL COUNT, UNSPECIFIED (7) Mononucleosis Current Visit: Yes Status: Acute Assessment & Plan: -weakly positive -supportive therapy -monitor labs (8) Left groin pain -US -?hernia VTE: Lovenox PPI: protonix Dispo: 2-3 days (2) Acute respiratory failure with hypoxemia Current Visit: Yes Status: Acute Code(s): J96.01 - ACUTE RESPIRATORY FAILURE WITH HYPOXIA (3) ALS (amyotrophic lateral sclerosis) Current Visit: Yes Status: Acute Code(s): G12.21 - AMYOTROPHIC LATERAL SCLEROSIS (4) Community acquired pneumonia Current Visit: Yes Status: Acute Code(s): J18.9 - PNEUMONIA, UNSPECIFIED ORGANISM (5) Hypertension Current Visit: No Status: Acute Code(s): I10 - ESSENTIAL (PRIMARY) HYPERTENSION (6) Leukocytosis Current Visit: Yes Status: Acute Code(s): D72.829 - ELEVATED WHITE BLOOD CELL COUNT, UNSPECIFIED (7) Mononucleosis Current Visit: Yes Status: Acute Code(s): B27.90 - INFECTIOUS MONONUCLEOSIS, UNSPECIFIED WITHOUT COMPLICATION (8) Left groin pain Current Visit: Yes Status: Acute Code(s): R10.32 - LEFT LOWER QUADRANT PAIN
[2023-07-19 05:19] LABS: ALBUMIN 3.1 g/dL (3.5-5.0); ANION GAP 9.5 MEQ/L (5-15); BILIRUBIN,TOTAL 0.6 mg/dL (0.2-1.3); Creatinine 1 0.67 mg/dL (0.66-1.25); EST GLOMERULAR FILTRATION RATE 106.2 ML/MIN; Potassium 3.4 mmol/L (3.5-5.1); Total Protein 6.5 g/dL (6.3-8.2)
[2023-07-19 09:14] VITALS: RESP 16
[2023-07-19] MEDS: Klor Con PO SCH (09:23)
[2023-07-19] MEDS: K-LYTE PO ONE (09:33)
[2023-07-19] MEDS: VITAMIN D PO SCH (09:34)
[2023-07-19 11:31] VITALS: PULSE 57
--- NOTE | 2023-07-19 12:16 | PCM.DS ---
Discharge Summary Date of Admission: 07/17/23 19:32 Date of Discharge: 07/19/23 Admitting Physician: MIGUEL SINGER DO Primary Care Provider: ROJELIO TOVAR Allergies Allergies No Known Drug Allergies Allergy (Verified 07/17/23 20:50) Hospital Summary - Hospital Course Hospital Course: 62 year old male admitted 07/17/23 admitted with sepsis secondary to pneumonia after experiencing a generalized weakness, fever, and a cough. Patient was hypoxic, tachycardic, febrile, and tachypneic on arrival to ED with spo2 at 84- 88% on RA, recovering to 91% when placed on 2L. Labs remarkable for leukocytosis and a weakly positive monoscreen. CXR demonstrating a LLL infiltrate. IP treatment with Ceftriaxone/azithromycin. WBC improving, patient is now afebrile. He does have complaints of Left groin/testicular/leg pain, per Hospice this is chronic with known hernia being managed as OP. Patient is A&O x 3 and able to make decisions. He declines placement and will discharge home with Hospice. Patient states he does have caregivers that help out as well. ST has evaluated patient with recommendations for honey thickened liquids, pureed diet, no straws, and meds to be crushed and given in applesauce/pudding. Discharge Note New Diagnosis: Pneumonia New Medications: cefpodoxime Follow Up: PCP Latest Assessment & Plan (1) Sepsis Current Visit: Yes Status: Acute Assessment & Plan: 2/ to pneumonia -Received 1L fluid bolus -LA WNL -Blood and urine cultures pending -Rocephin and azithromycin started in ED, will continue, follow cultures -SPO2 goal >92 %, patient RA at baseline -pt now at baseline -WBC trend improving 13.9<15.0, will continue to monitor -CXR with infiltrates /: -No longer meets criteria -WBC now wnl, LA WNL, vitals unremarkable -Continue ceftriaxone/azith - convert to cefpodoxime on discharge/last day today for azithromycin (2) Acute respiratory failure with hypoxemia Current Visit: Yes Status: Acute Assessment & Plan: -Secondary to pneumonia -Tele-Supplemental oxygen with spo2 goal > 92% -ABG prn if significant hypoxia/lethargy -viral panel negative -CXR with infiltrate 5/: -at baseline RA Code(s): J96.01 - ACUTE RESPIRATORY FAILURE WITH HYPOXIA (3) ALS (amyotrophic lateral sclerosis) Current Visit: Yes Status: Acute Assessment & Plan: -noted, adds complexity, continue appropriate home medications -On Hospice, Code statue : chemical and CPR but no intubation/ventilation -Will have ST evaluate patient due to choking on med pass 07/18: -ST recs for honey thickened liquids, pureed diet, and crushed meds with applesauce. Patient will return home on hospice care Code(s): G12.21 - AMYOTROPHIC LATERAL SCLEROSIS (4) Community acquired pneumonia Current Visit: Yes Status: Acute Assessment & Plan: -see sepsis -Ceftriaxone/azithromycin -supplemental oxygen with goal spo2 >92% -RT eval with neb/inh -sputum culture pending collection 07/18: -RA -continue abx, convert to cefpodoxime on discharge Code(s): J18.9 - PNEUMONIA, UNSPECIFIED ORGANISM (5) Hypertension Current Visit: No Status: Acute Assessment & Plan: -stable, no home meds, will monitor Code(s): I10 - ESSENTIAL (PRIMARY) HYPERTENSION (6) Leukocytosis Current Visit: Yes Status: Acute Assessment & Plan: -secondary to pneumonia - trending down, continue to monitor Code(s): D72.829 - ELEVATED WHITE BLOOD CELL COUNT, UNSPECIFIED (7) Mononucleosis Current Visit: Yes Status: Acute Assessment & Plan: -weakly positive -supportive therapy -monitor labs (8) Left groin pain -US -known hernia, being managed by PCP I spent 35 minutes [id number] with the patient on the day of discharge performing discharge exam, discussing hospital stay and discharge instructions with patient and caregivers, preparation of discharge records, prescriptions & referral forms and addressing any questions/concerns the patient had as documented above. - Vitals & Intake/Output Vital Signs: Vital Signs Temperature 98.2 F 07/19/23 11:30 Pulse Rate 57 L 07/19/23 11:30 Respiratory Rate 16 07/19/23 11:30 Blood Pressure 153/66 07/19/23 11:30 O2 Sat by Pulse Oximetry 97 07/19/23 11:30 Intake & Output: Intake & Output 07/17/23 07/18/23 07/19/23 07/20/23 11:59 11:59 11:59 11:59 Intake Total 700 4037 Output Total 600 750 Balance 100 3287 Weight 68.9 kg - Lab Result Diagrams: 07/19/23 04:05 07/19/23 04:05 Lab Results-Last 24 Hrs: Lab Results-Last 24 Hours 07/19/23 07/19/23 Range/Units 04:05 04:05 WBC 8.5 (4.0-10.5) x10^3/uL RBC 4.03 L (4.1-5.6) x10^6/uL Hgb 11.5 L (12.5-18.0) g/dL Hct 35.1 L (42-50) % MCV 87.1 (78-100) fL MCH 28.5 (26-32) pg MCHC 32.8 (32-36) g/dL RDW 14.3 H (11.5-14.0) % Plt Count 166 (150-450) x10^3/uL MPV 10.5 (7.5-11.0) fL Gran % 80.1 H (36.0-66.0) % Immature Gran % (Auto) 0.4 (0.00-0.4) % Nucleat RBC Rel Count 0.0 (0.00-0.1) % Eos # (Auto) 0.17 (0-0.5) x10^3/uL Immature Gran # (Auto) 0.03 (0.00-0.03) x10^3u/L Absolute Lymphs (auto) 0.89 L (1.0-4.6) x10^3/uL Absolute Monos (auto) 0.58 (0.0-1.3) x10^3/uL Absolute Nucleated RBC 0.00 (0.00-0.01) x10^3u/L Lymphocytes % 10.5 L (24.0-44.0) % Monocytes % 6.8 (0.0-12.0) % Eosinophils % 2.0 (0.00-5.0) % Basophils % 0.2 (0.0-0.4) % Absolute Granulocytes 6.80 (1.4-6.9) x10^3/uL Basophils # 0.02 (0-0.4) x10^3/uL Sodium 142 (135-145) mmol/L Potassium 3.4 L (3.5-5.1) mmol/L Chloride 110 H (98-107) mmol/L Carbon Dioxide 26 (22-30) mmol/L Anion Gap 9.5 (5-15) MEQ/L BUN 12 (9-20) mg/dL Creatinine 0.67 (0.66-1.25) mg/dL Estimated GFR 106.2 ML/MIN Glucose 90 (74-106) mg/dL Calcium 9.0 (8.4-10.2) mg/dL Total Bilirubin 0.60 (0.2-1.3) mg/dL AST 41 (17-59) U/L ALT 29 (0-50) U/L Alkaline Phosphatase 112 (38-126) U/L Serum Total Protein 6.5 (6.3-8.2) g/dL Albumin 3.1 L (3.5-5.0) g/dL Micro Results-Entire Visit: Microbiology 07/17/23 17:58 Urine Culture - Final Urine, Void NO GROWTH 07/17/23 16:56 Blood Culture - Preliminary Blood 07/17/23 16:49 Blood Culture - Preliminary Blood - Radiology Exams Ordered Rad Exams-Entire Visit: Radiology Procedures Category Date Time Status CHEST 1 VIEW (PORTABLE) Stat Exams 07/17/23 16:32 Completed TESTICLE [US] Stat Exams 07/19/23 08:40 Taken - Procedures and Test Procedures and Tests throughout Hospitalization: Therapy Orders & Screens 07/17/23 19:36 Oxygen Nasal Cannula 2 lpm Comment: Respiratory Therapy Consult ONCE Comment: Reason For Exam: 07/17/23 21:02 Respiratory Therapy Assessment DAILY Comment: Diagnosis: Fever and cough 07/18/23 08:54 ST Eval & Treat (MD Order) .as ordered Comment: Physician Instructions: Reason For Exam: Evaluate: Yes Treat: Yes Reason for Eval: DIFFICULTY SWALLOWING PILLS AND FOOD DX:ALS Diagnosis: L PNEUMONIA, MONP, SEPSIS Discharge Exam General Appearance: no apparent distress Neurologic Exam: alert, oriented x 3, cooperative, motor weakness Eye Exam: PERRL Ears, Nose, Throat Exam: moist mucous membranes Neck Exam: full range of motion Respiratory Exam: normal breath sounds, lungs clear Cardiovascular Exam: regular rate/rhythm, normal heart sounds Gastrointestinal/Abdomen Exam: soft, normal bowel sounds Male Genitalia Exam: testicular tenderness Rectal Exam: deferred Back Exam: decreased range of motion Extremity Exam: limited range of motion Skin Exam: pale Final Diagnosis/Problem List - Final Discharge Diagnosis/Problem (1) Sepsis Current Visit: Yes Status: Resolved (2) Acute respiratory failure with hypoxemia Current Visit: Yes Status: Resolved Code(s): J96.01 - ACUTE RESPIRATORY FAIL URE WITH HYPOXIA (3) ALS (amyotrophic lateral sclerosis) Current Visit: Yes Status: Chronic Code(s): G12.21 - AMYOTROPHIC LATERAL SCLEROSIS (4) Community acquired pneumonia Current Visit: Yes Status: Acute Code(s): J18.9 - PNEUMONIA, UNSPECIFIED ORGANISM (5) Hypertension Current Visit: No Status: Chronic Code(s): I10 - ESSENTIAL (PRIMARY) HYPERTENSION (6) Leukocytosis Current Visit: Yes Status: Resolved Code(s): D72.829 - ELEVATED WHITE BLOOD CELL COUNT, UNSPECIFIED (7) Mononucleosis Current Visit: Yes Status: Acute Code(s): B27.90 - INFECTIOUS MONONUCLEOSIS, UNSPECIFIED WITHOUT COMPLICATION (8) Left groin pain Current Visit: Yes Status: Acute Code(s): R10.32 - LEFT LOWER QUADRANT PAIN - Discharge Disposition: Home, Self-Care Condition: Fair Prescriptions: New Cefpodoxime Proxetil 200 mg [Vantin 200 mg] 200 mg PO BID 7 Days #14 tablet Continue guaiFENesin [Guaifenesin ER] 600 mg PO BID Acetaminophen 325 mg [Tylenol 325 mg] 650 mg PO Q4HPRN PRN PRN Reason: Pain Tramadol HCl 50 mg [Ultram 50 mg] 50 mg PO Q6HPRN PRN PRN Reason: Pain Sertraline HCl [Zoloft] 100 mg PO HS Benzonatate 100 mg PO TIDPRN PRN PRN Reason: Cough Cholecalciferol (Vitamin D3) [Vitamin D3] 2,000 units PO UD Honey [Medihoney] 15 ml TP DAILY Gabapentin [Neurontin ] 800 mg PO QID Scopolamine [Transderm-Scop] 1 each TD Q3D Additional Instructions: [facility] TO FOLLOW SUCTION AIRWAY PRN CRUSH MEDS WITH APPLESAUCE OR PUDDING DO NOT LAY DOWN FLAT AT LEAST 30 MINUTES AFTER MEAL HONEY THICKENED LIQUIDS NO STRAWS Follow up with: ROJELIO TOVAR MD [Primary Care Provider] -
--- NOTE | 2023-07-19 12:21 | XRAY ---
Indication: Scrotal edema. Two-dimensional testicular sonogram performed. Comparison: None Both testicles are homogeneous in echogenicity with normal color perfusion. Right testicle measures 4.4 x 1.8 x 3.9 cm and left measures 4.6 x 2.0 x 3.6 cm. Right epididymis demonstrates 4 mm cyst. Left epididymis sonographically unremarkable. No suspicious extratesticular mass or abnormal hydrocele. Impression: Tiny right epididymal cyst. Remaining testicular sonogram is negative.
[2023-07-19 16:40] VITALS: BP 134/64; TEMP 97.9; O2SAT 95
== END 2023-07-19 17:30 | disposition hospice, home (50) ==
LOC: ED 16:08 → MED SURG 19:32
PROVIDERS: ADMIT Internal Medicine; ATTEND Internal Medicine
DX: A41.9 Sepsis, unspecified organism (principal); J96.01 Acute respiratory failure with hypoxia; G12.21 Amyotrophic lateral sclerosis; J18.9 Pneumonia, unspecified organism; I10 Essential (primary) hypertension; D72.829 Elevated white blood cell count, unspecified; B27.90 Infectious mononucleosis, unspecified without complication; R10.32 Left lower quadrant pain; K44.9 Diaphragmatic hernia without obstruction or gangrene; Z79.899 Other long term (current) drug therapy
CPT/HCPCS: 0241U; 36000; 36415; 71045; 76870; 80053; 81001; 83605; 83880; 84132; 85025; 86308; 87040; 87086; 87651; 92610; 93041; 93268; 94760; 94762; 96365; 99285; 99291; G0378; Q3014; J0456; J0696; J1650; A9270-GY

== ENCOUNTER 2023-10-19 10:33 | Emergency (ER) | payer MEDICARE ==
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
[2023-10-19] MEDS ORDERED: Sodium Chloride 0.9% 1000 ML 1,000 ML ONE (11:05)
[2023-10-19] MEDS: Sodium Chloride 0.9% 1000 ML 1,000 ML IV STA (11:06)
[2023-10-19 11:15] LABS: Absolute Neutrophil Ct (ANC) 7.31 x10^3/uL (1.78-5.38); BASOPHIL % 0.3 % (0.2-1.2); Basophil (Absolute #) 0.03 x10^3/uL (0.01-0.08); Eosinophil % 4.6 % (0.8-7.0); Eosinophil (Absolute #) 0.43 x10^3/uL (0.04-0.54); Hematocrit 34.5 % (40.1-51.0); Hemoglobin 11.5 g/dL (13.7-17.5); IMMATURE GRAN # 0.06 x10^3u/L (0.001-0.031); IMMATURE GRAN % 0.6 % (0.001-0.429); Lymphocyte (Absolute #) 0.86 x10^3/uL (1.32-3.57); Lymphocytes % 9.1 % (21.8-53.1); Mean Cell Volume 83.3 fL (79.0-92.2); Mean Corpuscular Hemoglobin 27.8 pg (25.7-32.2); Mean Corpuscular Hgb Concent. 33.3 g/dL (32.3-36.5); Mean Platelet Volume 9.4 fL (9.4-12.4); Monocyte (Absolute #) 0.74 x10^3/uL (0.30-0.82); Monocytes % 7.8 % (5.3-12.2); Neutrophil % 77.6 % (34.0-67.9); Platelet Count 251 x10^3/uL (163-337); Red Blood Count 4.14 x10^6/uL (4.63-6.08); White Blood Count 9.4 x10^3/uL (4.23-9.07)
[2023-10-19 11:29] VITALS: TEMP 97.2
[2023-10-19 11:29] LABS: ANION GAP 12.8 MEQ/L (5-15); Creatinine 1 1.46 mg/dL (0.66-1.25); EST GLOMERULAR FILTRATION RATE 54.4 ML/MIN; Potassium 3.8 mmol/L (3.5-5.1)
[2023-10-19 11:33] LABS: Calcium 12.9 mg/dL (8.4-10.2)
[2023-10-19 11:51] LABS: Appearance Cloudy (Clear); Bacteria Moderate /HPF (None Seen); Bilirubin Negative (Negative); Blood Large (Negative); Epithelial Cells None Seen /HPF (None Seen); Glucose, Urine Negative (Negative); Ketones Negative (Negative); Leukocyte Esterase Moderate (Negative); Nitrite Positive (Negative); Ph 5.5 (4.6-8.0); Protein,Urine Dip 300 (Negative); RBC >100 /HPF (0-5); Urobilinogen 0.2 mg/dL (0.2); WBC >100 /HPF (0-5)
[2023-10-19 11:55] VITALS: O2SAT 99
[2023-10-19 12:06] LABS: ADD URINE CULTURE? YES (NO)
[2023-10-19] MEDS ORDERED: ROCEPHIN 1 GM / 100 ML NaCl 1 GM/100 ML IVPB IV ONE (12:28)
[2023-10-19] MEDS: ROCEPHIN 1 GM / 100 ML NaCl 1 GM/100 ML IVPB IV ONE (12:31)
[2023-10-19 13:33] VITALS: BP 120/65; PULSE 65; RESP 17
== END 2023-10-19 14:05 | disposition home or self-care (01) ==
LOC: ED 10:33
DX: N39.0 Urinary tract infection, site not specified (principal); E83.52 Hypercalcemia; I10 Essential (primary) hypertension; G12.21 Amyotrophic lateral sclerosis; Z79.891 Long term (current) use of opiate analgesic; Z79.899 Other long term (current) drug therapy
CPT/HCPCS: 36000; 36415; 51702; 80048; 81001; 85025; 87040; 87077; 87086; 87186; 96365; 99284; J0696

== ENCOUNTER 2023-11-21 10:39 | Observation (INO) | payer MEDICARE, OTHER ==
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
[2023-11-21 11:49] LABS: Absolute Neutrophil Ct (ANC) 9.35 x10^3/uL (1.78-5.38); BASOPHIL % 0.3 % (0.2-1.2); Basophil (Absolute #) 0.03 x10^3/uL (0.01-0.08); Eosinophil % 0.7 % (0.8-7.0); Eosinophil (Absolute #) 0.08 x10^3/uL (0.04-0.54); Hematocrit 35.1 % (40.1-51.0); Hemoglobin 12.1 g/dL (13.7-17.5); IMMATURE GRAN # 0.04 x10^3u/L (0.001-0.031); IMMATURE GRAN % 0.4 % (0.001-0.429); Lymphocyte (Absolute #) 0.55 x10^3/uL (1.32-3.57); Lymphocytes % 5.1 % (21.8-53.1); Mean Cell Volume 78.9 fL (79.0-92.2); Mean Corpuscular Hemoglobin 27.2 pg (25.7-32.2); Mean Corpuscular Hgb Concent. 34.5 g/dL (32.3-36.5); Mean Platelet Volume 9.5 fL (9.4-12.4); Monocyte (Absolute #) 0.74 x10^3/uL (0.30-0.82); Monocytes % 6.9 % (5.3-12.2); Neutrophil % 86.6 % (34.0-67.9); Platelet Count 298 x10^3/uL (163-337); Red Blood Count 4.45 x10^6/uL (4.63-6.08); Red Cell Distribution Width 13.3 % (11.6-14.4); White Blood Count 10.8 x10^3/uL (4.23-9.07)
[2023-11-21 12:02] LABS: ALBUMIN 3.9 g/dL (3.5-5.0); ANION GAP 12.6 MEQ/L (5-15); BILIRUBIN,TOTAL 1.3 mg/dL (0.2-1.3); Creatinine 1 1.14 mg/dL (0.66-1.25); EST GLOMERULAR FILTRATION RATE 73.2 ML/MIN; MAGNESIUM 1.7 mg/dL (1.6-2.3); Potassium 3.1 mmol/L (3.5-5.1); Total Protein 7.7 g/dL (6.3-8.2)
[2023-11-21] MEDS ORDERED: Sodium Chloride 0.9% 1000 ML 1,000 ML ONE (12:06)
[2023-11-21] MEDS: Sodium Chloride 0.9% 1000 ML 1,000 ML IV SCH ×2 (12:09→23:04)
[2023-11-21 12:17] LABS: Calcium 15.4 mg/dL (8.4-10.2)
[2023-11-21] MEDS ORDERED: POTASSIUM CHLORIDE 20 mEq IN WATER 100ML 100 ML IV ONE ×2 (12:44→14:40)
[2023-11-21] MEDS ORDERED: Magnesium 1 Gm / 100 Ml D5W*** 100 ML IV ONE ×2 (12:44→13:20)
[2023-11-21] MEDS: Magnesium 1 Gm / 100 Ml D5W*** 100 ML IV SCH (12:47)
[2023-11-21] MEDS: POTASSIUM CHLORIDE 20 mEq IN WATER 100ML 20 MEQ/100 ML BAG IV SCH (12:47)
[2023-11-21 13:06] LABS: Slide Review 1 YES
[2023-11-21 14:08] LABS: Appearance Cloudy (Clear); Bilirubin Negative (Negative); Blood Moderate (Negative); Glucose, Urine Negative (Negative); Ketones Trace (Negative); Leukocyte Esterase Large (Negative); Nitrite Positive (Negative); Protein,Urine Dip 30 (Negative)
[2023-11-21 14:14] LABS: Bacteria Many /HPF (None Seen); Epithelial Cells None Seen /HPF (None Seen); RBC 51-100 /HPF (0-5); WBC 21-50 /HPF (0-5)
[2023-11-21 14:17] LABS: ADD URINE CULTURE? ORDERED SEPARATELY (NO)
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
[2023-11-21] MEDS ORDERED: Zofran 4 MG/2 ML VIAL IV PRN (15:44)
[2023-11-21] MEDS: ROCEPHIN 1 GM / 100 ML NaCl 1 GM/100 ML IVPB IV SCH (19:01)
[2023-11-21] MEDS ORDERED: Ativan 2 MG/1 ML VIAL IV PRN (22:12)
[2023-11-21] MEDS: MORPHINE SULFATE 2 MG INJ IV PRN (23:03)
--- NOTE | 2023-11-22 05:06 | PCM.NOTE ---
Date and Time: 11/22/23 0509 Subjective Assessment: is a 62 year old male with a pmhx of ALS, peripheral neuropathy, and hypertension who presented to ED 11/21/23 requesting evaluation for PEG tube placement due to being unable to tolerate a diet. He has declined PEG placement in the past but wishes now to proceed. Patient has been on hospice up to this point but has since revocated with [facility] hospice and hospice declines further readmission. PEG is to be placed 11/22/23 by surgery. Patient is able to respond with yes/no answers. Denies fever,cough, sob, cp, abdominal pain, THOMPSON, dizziness, N/V/D. Upon arrival to ED vitals stable. Lab findings with leukocytosis, hgb at 12.1, hyponatremia at 127, hypokalemia at 3.1, and hypercalcemia. UA suspicious for UTI. Patient received mag, potassium and fluid in ED. Surgery has been consulted. Plan on PEG placement tomorrow. Will treat electrolyte deficiencies and UTI. 11/22/23: Met with patient and family bedside. PEG tube placement scheduled for today. Patient does not have anyone available to aid in feedings and PEG tube care. Patient refuses placement. Patient does have hospice services but they will not be able to aid in feedings. Family to discuss if they are able to help or whether they would rather patient go home with full hospice services and no PEG placement. They will update when decision is made. - Review of Systems All Other Systems: Unable due to condition Objective Exam General Appearance: no apparent distress, cachetic Neurologic Exam: alert, oriented x 3, cooperative Skin Exam: dry, pale Eye Exam: PERRL Ears, Nose, Throat Exam: dry mucous membranes Neck Exam: normal inspection Respiratory Exam: normal breath sounds, lungs clear Cardiovascular Exam: regular rate/rhythm, normal heart sounds Gastrointestinal/Abdomen Exam: soft, normal bowel sounds Extremity Exam: normal inspection Back Exam: normal inspection Male Genitalia Exam: deferred Rectal Exam: deferred Objective Data Vital Signs: Vital Signs - 24 hr Temp Pulse Resp BP BP Pulse Ox 11/22/23 04:00 97.7 F 72 17 122/79 97 11/22/23 00:00 97.6 F 83 10 L 123/76 95 11/21/23 21:19 94 L 11/21/23 20:00 97.3 F 86 10 L 123/76 93 L 11/21/23 16:45 97.4 F 87 18 131/73 94 L 11/21/23 15:37 97.4 F 87 18 131/73 94 L 11/21/23 14:00 91 H 12 168/92 96 11/21/23 13:30 91 H 10 L 152/85 96 11/21/23 13:00 90 11 L 149/84 96 11/21/23 12:36 97 11/21/23 12:30 85 11 L 140/87 97 11/21/23 12:00 92 H 15 141/83 97 11/21/23 11:30 90 10 L 142/87 97 11/21/23 10:48 99 11/21/23 10:42 97.2 F 98 H 12 164/92 97 Pain Assessment - Last Documented Pain Intensity 0 Intake and Output: Intake & Output 11/19/23 11/20/23 11/21/23 11/22/23 11:59 11:59 11:59 11:59 Intake Total 1244 Output Total 750 Balance 494 Weight 52.9 kg 52.9 kg Lab Results: Lab Results-Last 24 Hours 11/21/23 11/21/23 11/21/23 Range/Units 11:45 11:45 13:51 WBC 10.8 H (4.23-9.07) x10^3/uL RBC 4.45 L (4.63-6.08) x10^6/uL Hgb 12.1 L (13.7-17.5) g/dL Hct 35.1 L (40.1-51.0) % MCV 78.9 L (79.0-92.2) fL MCH 27.2 (25.7-32.2) pg MCHC 34.5 (32.3-36.5) g/dL RDW 13.3 (11.6-14.4) % Plt Count 298 (163-337) x10^3/uL MPV 9.5 (9.4-12.4) fL Gran % 86.6 H (34.0-67.9) % Immature Gran % (Auto) 0.4 (0.001-0.429) % Nucleat RBC Rel Count 0.0 (0.00-0.2) % Eos # (Auto) 0.08 (0.04-0.54) x10^3/uL Immature Gran # (Auto) 0.04 H (0.001-0.031) x10^3u/L Absolute Lymphs (auto) 0.55 L (1.32-3.57) x10^3/uL Absolute Monos (auto) 0.74 (0.30-0.82) x10^3/uL Absolute Nucleated RBC 0.00 (0.00-0.012) x10^3u/L Lymphocytes % 5.1 L (21.8-53.1) % Monocytes % 6.9 (5.3-12.2) % Eosinophils % 0.7 L (0.8-7.0) % Basophils % 0.3 (0.2-1.2) % Absolute Granulocytes 9.35 H (1.78-5.38) x10^3/uL Basophils # 0.03 (0.01-0.08) x10^3/uL Sodium 127 L (135-145) mmol/L Potassium 3.1 L (3.5-5.1) mmol/L Chloride 83 L (98-107) mmol/L Carbon Dioxide 35 H (22-30) mmol/L Anion Gap 12.6 (5-15) MEQ/L BUN 24 H (9-20) mg/dL Creatinine 1.14 (0.66-1.25) mg/dL Estimated GFR 73.2 ML/MIN Glucose 97 (74-106) mg/dL Calcium 15.4 H* (8.4-10.2) mg/dL Magnesium 1.7 (1.6-2.3) mg/dL Total Bilirubin 1.30 (0.2-1.3) mg/dL AST 37 (17-59) U/L ALT 23 (0-50) U/L Alkaline Phosphatase 138 H (38-126) U/L Serum Total Protein 7.7 (6.3-8.2) g/dL Albumin 3.9 (3.5-5.0) g/dL Urine Color Yellow (Yellow) Urine Appearance Cloudy A (Clear) Urine pH 6.0 (4.6-8.0) Ur Specific [place] 1.010 (1.005-1.030) Urine Protein 30 (Negative) Urine Glucose (UA) Negative (Negative) mg/dL Urine Ketones Trace A (Negative) Urine Blood Moderate A (Negative) Urine Nitrite Positive A (Negative) Urine Bilirubin Negative (Negative) Urine Urobilinogen 1.0 A (0.2) mg/dL Ur Leukocyte Esterase Large A (Negative) U Hyaline Cast (Auto) 3-5 A (0-2) /LPF Urine Microscopic RBC 51-100 A (0-5) /HPF Urine Microscopic WBC 21-50 A (0-5) /HPF Ur Epithelial Cells None Seen (None Seen) /HPF Urine Bacteria Many A (None Seen) /HPF Urine Culture Reflexed ORDERED SEPARATELY (NO) Slides for Path Review YES Multi-Disciplinary Progress Notes: Multi-Disciplinary Progress Notes 11/21/23 15:34 Case Management Note by Audrey Montiel S/W SADIE @ [facility]- THEY HAVE RECOVATED PATIENT. THEY REPORT PATIENT IS NOT HOSPICE MINDED. THEY REPORT PATIENT NEEDS 24 HR CARE FOR PEG IF HE REMAINS A FULL CODE. FAMILY IS NOT ABLE TO HELP HIM 24/7 AT HOME. THEY STATED PATIENT'S DISEASE IS PROGRESSING AND THEY WILL ONLY PICK HIM BACK UP AT THIS TIME IF HE IS A DNR OR GOES TO A FACILITY D/T REQUIRING MORE THAN HOSPICE CARE CAN PROVIDE. S/W BROTHER- ALVIN. HE WAS NOTIFIED THAT HOSPICE HAS REVOCATED AND DOES NOT PLAN TO RETURN TO CARE FOR PATIENT. ALVIN REPORTS HE WAS UNDER THE UNDERSTANDING THAT HOSPICE WOULD RESUME ONCE HE RETURNS HOME WITH HIS PEG. ALVIN WAS NOTIFIED THAT D/T PATIENT'S DISEASE PROGRESSION- HOSPICE IS NOT WILLING TO TAKE PATIENT BACK A FULL CODE AND THEY CANNOT BE THERE 24/7 FOR PEG FEEDINGS. ALVIN REPORTS HE HAS FAMILY IN A OUT TO HELP PATIENT BUT REPORTS THEY CANNOT PROVIDE 24 HR CARE FOR PATIENT. THEY HAVE ENCOURAGED PATIENT TO GO TO A FACILITY TO LIVE OR SIGN A DNR BUT PATIENT REFUSES BOTH. THEY WILL BE IN TO DISCUSS OPTIONS WITH PATIENT. THEY WILL ALSO DISCUSS OPTIONS WITH HOSPICE PROVIDER S/W PATIENT WITH HS VENU HARTMAN PRESENT- PATIENT WAS ABLE TO ANSWER QUESTIONS TO PLACE, YEAR AND CURRENT PRESIDENT. PATIENT WAS NOTIFIED THAT HOSPICE WILL NOT BE RESUMING CARE IF HE DOES NOT SIGN A DNR FOR THEM. IT WAS EXPLAINED TO PATIENT THAT HIS FAMILY IS HELPING HIM MUCH THEY CAN BUT THEY CANNOT PROVIDE HIM 24 HR CARE. PATIENT ALSO SIGNALED THAT HE DOES NOT WANT FACILITY PLACEMENT AGAIN. IT WAS EXPLAINED TO PATIENT THAT IF LIVING HIS BEST, LONGEST LIFE IS HIS PRIORITY- HE NEEDS TO GO TO A FACILITY SO HE CAN HAVE THE 24 HR CARE WITH HIS CONDITION DECLINING. OR IF HIS PRIORITY IS GETTING THE BEST CARE HE CAN WHILE IN HIS OWN HOME- THEN IT IS TIME TO CONSIDER THE DNR. THEN HOSPICE CAN RESUME SERVICES AND KEEP PATIENT COMFORTABLE IN HIS HOME. PATIENT CAN HAVE THE PEG TUBE ON HOSPICE BUT FAMILY WILL STILL BE REQUIRED TO DO ALL THE FEEDS. PATIENT VOICING THE BEST HE CAN THRU VARIOUS QUESTIONS AND REPEATED QUESTIONS- THAT HE WANTS TO BE A DNR AND GO HOME AND PASS AWAY PEACEFULLY. PATIENT UNABLE TO SIGN SCO- VENU WILL DISCUSS THIS AGAIN WITH PATIENT WHEN BROTHER, SENA ESQUIVEL PRESENT. S/W SADIE WITH HOSPICE- SHE WAS UPDATED ON PATIENT NOTING THAT HE WANTS TO BE A DNR. SHE WILL CALL AND DISCUSS WITH BROTHER SENA ESQUIVEL. SHE WILL MAKE SURE HE UNDERSTANDS THAT FAMILY UNDERSTANDS THAT THEY WILL BE RESPONSIBLE FOR FEEDS THRU PEG IF HE CHOOSES TO CONTINUE WITH PEG PLACEMENT. Initialized on 11/21/23 15:34 - END OF NOTE Assessment/Plan (1) UTI (urinary tract infection) Current Visit: Yes Status: Acute Assessment & Plan: (1) UTI (urinary tract infection) Current Visit: Yes Status: Acute Assessment & Plan: -UA suspicious for UTI, will treat with rocephin empirically, follow culture 11/21: -Culture with gram - will continue rocephin Code(s): N39.0 - URINARY TRACT INFECTION, SITE NOT SPECIFIED (2) Hypercalcemia Current Visit: Yes Status: Acute Assessment & Plan: -IVF -parathyroid/vitamin D -Recheck in a.m. 11/21: -improving -continue IVF Code(s): E83.52 - HYPERCALCEMIA (3) HTN (hypertension) Current Visit: Yes Status: Acute Assessment & Plan: -stable, continue to monitor Code(s): I10 - ESSENTIAL (PRIMARY) HYPERTENSION (4) Hypokalemia Current Visit: Yes Status: Acute Assessment & Plan: -Received 40meq IV in ED, will recheck at 1641- replenish per protocol -tele 11/21: -at 3.1 today, will infuse 20meq of K+, recheck this afternoon Code(s): E87.6 - HYPOKALEMIA (5) Hyponatremia Current Visit: Yes Status: Acute Assessment & Plan: -NS at 100mls/hr -most likely due to hypovolemia - poor intake -BMP q 4 hours 11/21: -improving with IVF now at 131>127 Code(s): E87.1 - HYPO-OSMOLALITY AND HYPONATREMIA (6) ALS (amyotrophic lateral sclerosis) Current Visit: Yes Status: Chronic Assessment & Plan: -noted, here for PEG placement - family to decide if they are able to help with feedings -surgery consulted - will place 11/22/23 unless family decides to go home with hospice care only -pt refuses SNF placement Code(s): N39.0 - URINARY TRACT INFECTION, SITE NOT SPECIFIED (2) Hypercalcemia Current Visit: Yes Status: Acute Code(s): E83.52 - HYPERCALCEMIA (3) HTN (hypertension) Current Visit: Yes Status: Acute Code(s): I10 - ESSENTIAL (PRIMARY) HYPERTENSION (4) Hypokalemia Current Visit: Yes Status: Acute Code(s): E87.6 - HYPOKALEMIA (5) Hyponatremia Current Visit: Yes Status: Acute Code(s): E87.1 - HYPO-OSMOLALITY AND HYPONATREMIA (6) ALS (amyotrophic lateral sclerosis) Current Visit: Yes Status: Chronic Code(s): G12.21 - AMYOTROPHIC LATERAL SCLEROSIS
[2023-11-22 05:27] LABS: BASOPHIL % 0.4 % (0.2-1.2); Basophil (Absolute #) 0.03 x10^3/uL (0.01-0.08); Eosinophil % 4.1 % (0.8-7.0); Eosinophil (Absolute #) 0.32 x10^3/uL (0.04-0.54); Hemoglobin 9.6 g/dL (13.7-17.5); IMMATURE GRAN # 0.03 x10^3u/L (0.001-0.031); IMMATURE GRAN % 0.4 % (0.001-0.429); Lymphocyte (Absolute #) 0.97 x10^3/uL (1.32-3.57); Lymphocytes % 12.5 % (21.8-53.1); Mean Cell Volume 80.3 fL (79.0-92.2); Mean Corpuscular Hemoglobin 26.6 pg (25.7-32.2); Mean Corpuscular Hgb Concent. 33.1 g/dL (32.3-36.5); Mean Platelet Volume 10.3 fL (9.4-12.4); Monocyte (Absolute #) 0.71 x10^3/uL (0.30-0.82); Monocytes % 9.1 % (5.3-12.2); Neutrophil % 73.5 % (34.0-67.9); Platelet Count 259 x10^3/uL (163-337); Red Blood Count 3.61 x10^6/uL (4.63-6.08); Red Cell Distribution Width 13.8 % (11.6-14.4); White Blood Count 7.8 x10^3/uL (4.23-9.07)
[2023-11-22 05:40] LABS: ALBUMIN 3.2 g/dL (3.5-5.0); BILIRUBIN,TOTAL 0.9 mg/dL (0.2-1.3); Creatinine 1 1.16 mg/dL (0.66-1.25); EST GLOMERULAR FILTRATION RATE 71.7 ML/MIN; Potassium 3.2 mmol/L (3.5-5.1); Total Protein 6.6 g/dL (6.3-8.2)
[2023-11-22 05:48] LABS: Calcium 13.8 mg/dL (8.4-10.2)
[2023-11-22 05:53] LABS: INR 1.45 (0.8-3.0); PROTIME 15.4 SECONDS (9.4-12.5); PTT 35.2 SECONDS (25.1-36.5)
[2023-11-22] MEDS: POTASSIUM CHLORIDE 20 mEq IN WATER 100ML 20 MEQ/100 ML BAG IV ONE (07:54)
[2023-11-22] MEDS: K-LYTE PO SCH (08:00)
--- NOTE | 2023-11-22 08:49 | CONS ---
HISTORY: He was seen on bed 4 in the ER. He is not alert and oriented. He apparently lives at home. He was offered a G-tube about 3 months ago and did not want one. He has ALS, now he basically has terminal ALS. He has lost about 30 more pounds. He is very thin, cachectic, pale, white, not really communicating. If it is okay with the family and if we can get somebody to sign for consent, a PEG tube is certainly about all we can do for this gentleman at this time.
[2023-11-23 05:32] LABS: BASOPHIL % 0.3 % (0.2-1.2); Basophil (Absolute #) 0.03 x10^3/uL (0.01-0.08); Eosinophil % 2.8 % (0.8-7.0); Eosinophil (Absolute #) 0.27 x10^3/uL (0.04-0.54); Hematocrit 30.8 % (40.1-51.0); Hemoglobin 10.2 g/dL (13.7-17.5); IMMATURE GRAN # 0.03 x10^3u/L (0.001-0.031); IMMATURE GRAN % 0.3 % (0.001-0.429); Lymphocyte (Absolute #) 0.64 x10^3/uL (1.32-3.57); Lymphocytes % 6.7 % (21.8-53.1); Mean Cell Volume 81.5 fL (79.0-92.2); Mean Corpuscular Hgb Concent. 33.1 g/dL (32.3-36.5); Mean Platelet Volume 10.1 fL (9.4-12.4); Monocytes % 6.3 % (5.3-12.2); Neutrophil % 83.6 % (34.0-67.9); Platelet Count 259 x10^3/uL (163-337); Red Blood Count 3.78 x10^6/uL (4.63-6.08); Red Cell Distribution Width 14.3 % (11.6-14.4); White Blood Count 9.6 x10^3/uL (4.23-9.07)
[2023-11-23 06:04] LABS: ALBUMIN 3.3 g/dL (3.5-5.0); ANION GAP 12.8 MEQ/L (5-15); BILIRUBIN,TOTAL 0.9 mg/dL (0.2-1.3); Creatinine 1 0.99 mg/dL (0.66-1.25); EST GLOMERULAR FILTRATION RATE 86.7 ML/MIN; Potassium 3.2 mmol/L (3.5-5.1); Total Protein 6.8 g/dL (6.3-8.2)
[2023-11-23 06:12] LABS: Calcium 13.4 mg/dL (8.4-10.2)
[2023-11-23] MEDS ORDERED: D50W 50 ml Abboject IV ONE (07:23)
[2023-11-23] MEDS: D50W 50 ml Abboject IV ONE (07:24)
--- NOTE | 2023-11-23 10:22 | PCM.NOTE ---
Date and Time: 11/23/23 1017 Subjective Assessment: is a 62 year old male with a pmhx of ALS, peripheral neuropathy, and hypertension who presented to ED 11/21/23 requesting evaluation for PEG tube placement due to being unable to tolerate a diet. He has declined PEG placement in the past but wishes now to proceed. Patient has been on hospice up to this point but has since revocated with [facility] hospice and hospice declines further readmission. PEG is to be placed 11/22/23 by surgery. Patient is able to respond with yes/no answers. Denies fever,cough, sob, cp, abdominal pain, THOMPSON, dizziness, N/V/D. Upon arrival to ED vitals stable. Lab findings with leukocytosis, hgb at 12.1, hyponatremia at 127, hypokalemia at 3.1, and hypercalcemia. UA suspicious for UTI. Patient received mag, potassium and fluid in ED. Surgery has been consulted. Plan on PEG placement tomorrow. Will treat electrolyte deficiencies and UTI. 11/22/23: Met with patient and family bedside. PEG tube placement scheduled for today. Patient does not have anyone available to aid in feedings and PEG tube care. Patient refuses placement. Patient does have hospice services but they will not be able to aid in feedings. Family to discuss if they are able to help or whether they would rather patient go home with full hospice services and no PEG placement. They will update when decision is made. 11/23/23: Met with patient bedside. At this time he does not wish for PEG placement. He wishes to be discharged home with Hospice services. [facility] consulted. Plan to correct electrolytes today. APS also coming to evaluate home situation. Recommended SNF as patient needs 24 hour care and family unable to stay with patient. He continues to refuse SNF placement. Ucult with gram negative, will continue ceftriaxone. Calcium elevated, will start steroids. - Review of Systems Constitutional: No Symptoms Eyes: No Symptoms Ears, Nose, & Throat: No Symptoms Respiratory: No Symptoms All Other Systems: Unable due to condition Objective Exam General Appearance: no apparent distress, cachetic Neurologic Exam: alert, cooperative, motor deficits (due to ALS) Skin Exam: normal color Wound Assessment: Skin/Wound Assessment Wound/Incision Assessment Start: 11/21/23 17:11 Text: Status: Active Freq: Q6H Protocol: Document 11/23/23 07:32 DELORESKENNYJAVI (Rec: 11/23/23 07:41 DELORESKENNYJAVI [id number]) Wound/Incision Assessment Back Wound Assessment Shift Assessment Wound Type PRESSURE AREAS Wound Stage Stage I Drainage Amount None General Appearance Open to air Surrounding Tissue [place] Comment MULTIPLE PRESSURE AREAS TO UPPER BUTTOCKS AND BACK ALONG SPINE AND RIBS, WILL APPLY BARRIER CREAM Buttock Wound Assessment Shift Assessment Wound Type SHEARING Wound Stage Non Pressure Wound Dressing Status Changed Drainage Amount None Surrounding Tissue [place] Comment MEPILEX IN PLACE Eye Exam: PERRL Ears, Nose, Throat Exam: normal ENT inspection Neck Exam: normal inspection Respiratory Exam: normal breath sounds, lungs clear Cardiovascular Exam: regular rate/rhythm, normal heart sounds Gastrointestinal/Abdomen Exam: soft, normal bowel sounds Extremity Exam: limited range of motion Back Exam: normal inspection Objective Data Vital Signs: Vital Signs - 24 hr Temp Pulse Resp BP Pulse Ox 11/23/23 08:17 93 L 11/23/23 07:23 98.0 F 82 18 152/78 94 L 11/23/23 04:00 97.9 F 76 16 154/74 95 11/23/23 00:00 98.5 F 83 14 151/75 95 11/22/23 20:10 94 L 11/22/23 20:00 15 11/22/23 19:56 98.5 F 86 15 125/78 94 L 11/22/23 16:00 97.7 F 81 14 144/72 92 L 11/22/23 11:52 97.8 F 70 16 122/60 94 L Pain Assessment - Last Documented Pain Intensity 0 Pain Scale Used [facility] Intake and Output: Intake & Output 11/20/23 11/21/23 11/22/23 11/23/23 11:59 11:59 11:59 11:59 Intake Total 1244 80 Output Total 750 1575 Balance 494 -1495 Weight 52.9 kg 52.9 kg Lab Results: Lab Results-Last 24 Hours 11/22/23 11/23/23 11/23/23 Range/Units 13:28 05:20 05:20 WBC 9.6 H (4.23-9.07) x10^3/uL RBC 3.78 L (4.63-6.08) x10^6/uL Hgb 10.2 L (13.7-17.5) g/dL Hct 30.8 L (40.1-51.0) % MCV 81.5 (79.0-92.2) fL MCH 27.0 (25.7-32.2) pg MCHC 33.1 (32.3-36.5) g/dL RDW 14.3 (11.6-14.4) % Plt Count 259 (163-337) x10^3/uL MPV 10.1 (9.4-12.4) fL Gran % 83.6 H (34.0-67.9) % Immature Gran % (Auto) 0.3 (0.001-0.429) % Nucleat RBC Rel Count 0.0 (0.00-0.2) % Eos # (Auto) 0.27 (0.04-0.54) x10^3/uL Immature Gran # (Auto) 0.03 (0.001-0.031) x10^3u/L Absolute Lymphs (auto) 0.64 L (1.32-3.57) x10^3/uL Absolute Monos (auto) 0.60 (0.30-0.82) x10^3/uL Absolute Nucleated RBC 0.00 (0.00-0.012) x10^3u/L Lymphocytes % 6.7 L (21.8-53.1) % Monocytes % 6.3 (5.3-12.2) % Eosinophils % 2.8 (0.8-7.0) % Basophils % 0.3 (0.2-1.2) % Absolute Granulocytes 8.00 H (1.78-5.38) x10^3/uL Basophils # 0.03 (0.01-0.08) x10^3/uL Sodium 138 D (135-145) mmol/L Potassium 3.6 3.2 L (3.5-5.1) mmol/L Chloride 101 (98-107) mmol/L Carbon Dioxide 28 (22-30) mmol/L Anion Gap 12.8 (5-15) MEQ/L BUN 18 (9-20) mg/dL Creatinine 0.99 (0.66-1.25) mg/dL Estimated GFR 86.7 ML/MIN Glucose 56 L (74-106) mg/dL POC Glucometer (50 to 500) mg/dL Calcium 13.4 H* (8.4-10.2) mg/dL Total Bilirubin 0.90 (0.2-1.3) mg/dL AST 28 (17-59) U/L ALT 14 (0-50) U/L Alkaline Phosphatase 148 H (38-126) U/L Serum Total Protein 6.8 (6.3-8.2) g/dL Albumin 3.3 L (3.5-5.0) g/dL 11/23/23 11/23/23 Range/Units 06:31 07:51 WBC (4.23-9.07) x10^3/uL RBC (4.63-6.08) x10^6/uL Hgb (13.7-17.5) g/dL Hct (40.1-51.0) % MCV (79.0-92.2) fL MCH (25.7-32.2) pg MCHC (32.3-36.5) g/dL RDW (11.6-14.4) % Plt Count (163-337) x10^3/uL MPV (9.4-12.4) fL Gran % (34.0-67.9) % Immature Gran % (Auto) (0.001-0.429) % Nucleat RBC Rel Count (0.00-0.2) % Eos # (Auto) (0.04-0.54) x10^3/uL Immature Gran # (Auto) (0.001-0.031) x10^3u/L Absolute Lymphs (auto) (1.32-3.57) x10^3/uL Absolute Monos (auto) (0.30-0.82) x10^3/uL Absolute Nucleated RBC (0.00-0.012) x10^3u/L Lymphocytes % (21.8-53.1) % Monocytes % (5.3-12.2) % Eosinophils % (0.8-7.0) % Basophils % (0.2-1.2) % Absolute Granulocytes (1.78-5.38) x10^3/uL Basophils # (0.01-0.08) x10^3/uL Sodium (135-145) mmol/L Potassium (3.5-5.1) mmol/L Chloride (98-107) mmol/L Carbon Dioxide (22-30) mmol/L Anion Gap (5-15) MEQ/L BUN (9-20) mg/dL Creatinine (0.66-1.25) mg/dL Estimated GFR ML/MIN Glucose (74-106) mg/dL POC Glucometer 48 L* 154 H (50 to 500) mg/dL Calcium (8.4-10.2) mg/dL Total Bilirubin (0.2-1.3) mg/dL AST (17-59) U/L ALT (0-50) U/L Alkaline Phosphatase (38-126) U/L Serum Total Protein (6.3-8.2) g/dL Albumin (3.5-5.0) g/dL Multi-Disciplinary Progress Notes: Multi-Disciplinary Progress Notes 11/22/23 14:40 Case Management Note by Audrey Montiel S/W HARRISON HERNANDE[employer] NEWS VIDEOTAPE EDITOR- SHE WAS NOTIFIED PATIENT HAS NOW DECIDED HE DOES NOT WANT A FEEDING TUBE. HE WANTS TO RETURN HOME WITH HIS HOSPICE SERVICES. SHE WOULD LIKE AN APS REPORT MADE D/T PATIENT UNABLE TO CARE FOR HIMSELF AT HOME AND HAS NO 24 HR CARE. APS REPORT MADE VIA PHONE WITH [facility] (SERVICES CAPPS COUN TY). THEY WILL BE IN TO SEE PATIENT IN THE AM. [facility] HAS BEEN IN TO SEE PATIENT. THEY NOW SAY THEY WILL NOT TAKE PATIENT ON SERVICES AGAIN WITHOUT 24 HR CAREGIVERS SET UP. FAMILY UNABLE TO DO THAT AND ALSO REPORT THEY DO NOT HAVE THE FUNDS TO DO THAT. PATIENT AWARE OF [facility] REFUSING TO TAKE HIM BACK. HE STILL REFUSES TO GO TO FACILITY. HE WOULD LIKE ANOTHER HOSPICE COMPANY CONSULTED TO SEE IF THEY WILL TAKE HIM ON SERVICES. NOTIFIED ALVIN (BROTHER) VIA PHONE. HE AGREES WITH TRYING A DIFFERENT COMPANY. [facility] CALLED AND NOTIFIED OF REFERRAL .THEY WILL BE IN TO SEE PATIENT AT 0900. ALVIN WAS NOTIFIED THAT [facility] WILL BE IN TO DISCUSS SERVICES WITH THEM AT 0900. HE WAS STRONGLY ENCOURAGED TO BE PRESENT FOR THAT WELL MUCH FAMILY POSSIBLE. HE VERIFIED UNDERSTANDING AND STATED HE WOULD TRY. SISTER MARIA DE JESUS AT BEDSIDE- ALSO NOTIFIED. PATIENT AWARE WELL. Initialized on 11/22/23 14:40 - END OF NOTE 11/22/23 13:26 Case Management Note by Audrey Montiel PATIENT'S BROTHER HERE TALKING WITH PATIENT. HE HAS NOW DECIDED HE DOES NOT WANT THE FEEDING TUBE. HE UNDERSTANDS HE WILL GO HOME WITH NO NUTRITION. HE HAS VOICED AND INDICATED MULTIPLE TIMES THAT HIS PRIORITY IS BEING AT HOME NI MATTER WHAT. HE WANTS TO RETURN HOME WITH HIS HOSPICE CARE AND ALLOW [facility] TO TAKE ITS COURSE. HE INDICATES HE WILL SIGN A DNR WHEN HE RESUMES CARE WITH HOSPICE SERVICES. CALLED AND [facility]- THEY WILL BE IN TO DISCUSS RESUMING SERVICES WITH THEM. Initialized on 11/22/23 13:26 - END OF NOTE 11/22/23 11:00 (created 11/22/23 11:43) Case Management Note by Audrey Montiel LONG DISCUSSION AGAIN WITH PATIENT, BROTHER ALVIN AND HIS RONALD. WE DISCUSSED SEVERAL DIFFERENT OPTIONS REGARDING HOME CARE AND PLACEMENT AND TUBE FEEDINGS. PATIENT STILL REFUSING PLACEMENT AT THIS TIME. FAMILY DISCUSSING WITH OTHER FAMILY MEMBERS ON IF THERE WILL BE ENOUGH HELP AT HOME FOR PATIENT TO HAVE PEG FEEDINGS. Initialized on 11/22/23 11:43 - END OF NOTE Assessment/Plan (1) UTI (urinary tract infection) Current Visit: Yes Status: Acute Assessment & Plan: -UA suspicious for UTI, will treat with rocephin empirically, follow culture 11/21: -Culture with gram - will continue rocephin Code(s): N39.0 - URINARY TRACT INFECTION, SITE NOT SPECIFIED (2) Hypercalcemia Current Visit: Yes Status: Acute Assessment & Plan: -IVF -parathyroid/vitamin D -Recheck in a.m. 11/21: -improving -continue IVF 11/22: -add solumedrol - unable to take oral Code(s): E83.52 - HYPERCALCEMIA (3) HTN (hypertension) Current Visit: Yes Status: Acute Assessment & Plan: -stable, continue to monitor Code(s): I10 - ESSENTIAL (PRIMARY) HYPERTENSION (4) Hypokalemia Current Visit: Yes Status: Acute Assessment & Plan: -Received 40meq IV in ED, will recheck at 1641- replenish per protocol -tele 11/21: -at 3.1 today, will infuse 20meq of K+, recheck this afternoon 11/22: -replenish Code(s): E87.6 - HYPOKALEMIA (5) Hyponatremia Current Visit: Yes Status: Acute Assessment & Plan: -NS at 100mls/hr -most likely due to hypovolemia - poor intake -BMP q 4 hours 11/21: -improving with IVF now at 131>127 11/22: -resolved Code(s): E87.1 - HYPO-OSMOLALITY AND HYPONATREMIA (6) ALS (amyotrophic lateral sclerosis) Current Visit: Yes Status: Chronic Assessment & Plan: -noted, here for PEG placement - family to decide if they are able to help with feedings -surgery consulted - will place 11/22/23 unless family decides to go home with hospice care only -pt refuses SNF placement 11/22: -No longer wishes to have PEG placement, requesting home with hospice - refuses placement. Recommended SNF as pt needs 24 hour care and family not able to help. APS to assess. [facility] consulted for Hospice services Code(s): N39.0 - URINARY TRACT INFECTION, SITE NOT SPECIFIED (2) Hypercalcemia Current Visit: Yes Status: Acute Code(s): E83.52 - HYPERCALCEMIA (3) HTN (hypertension) Current Visit: Yes Status: Acute Code(s): I10 - ESSENTIAL (PRIMARY) HYPERTENSION (4) Hypokalemia Current Visit: Yes Status: Acute Code(s): E87.6 - HYPOKALEMIA (5) Hyponatremia Current Visit: Yes Status: Acute Code(s): E87.1 - HYPO-OSMOLALITY AND HYPONATREMIA (6) ALS (amyotrophic lateral sclerosis) Current Visit: Yes Status: Chronic Code(s): G12.21 - AMYOTROPHIC LATERAL SCLEROSIS
[2023-11-23] MEDS: POTASSIUM CHLORIDE 20 mEq IN WATER 100ML 20 MEQ/100 ML BAG IV ONE (10:57)
[2023-11-23] MEDS: solu-MEDROL 40 MG, Sterile H2O 10 ml 1 ML IV SCH (10:57)
--- NOTE | 2023-11-24 05:10 | PCM.DS ---
Discharge Summary Date of Admission: 11/21/23 15:05 Date of Discharge: 11/24/23 Admitting Physician: AROLDO MCGRAW MD Consults: Consults on Case 11/21/23 15:10 Consult Surgery ROUTINE Primary Care Provider: ROJELIO TOVAR Allergies Allergies No Known Drug Allergies Allergy (Verified 11/21/23 10:49) Hospital Summary - Hospital Course Hospital Course: is a 62 year old male with a pmhx of ALS, peripheral neuropathy, and hypertension who presented to ED 11/21/23 requesting evaluation for PEG tube placement due to being unable to tolerate a diet. He has declined PEG placement in the past but wishes now to proceed. Patient has been on hospice up to this point but has since revocated with [facility] hospice and hospice declines further readmission. PEG is to be placed 11/22/23 by surgery. Patient is able to respond with yes/no answers. Denies fever,cough, sob, cp, abdominal pain, THOMPSON, dizziness, N/V/D. Upon arrival to ED vitals stable. Lab findings with leukocytosis, hgb at 12.1, hyponatremia at 127, hypokalemia at 3.1, and hypercalcemia. UA suspicious for UTI. Patient received mag, potassium and fluid in ED. Surgery has been consulted. Patient was to have peg placed but later declined. He has been set up with [facility] hospice and private nursing care at home. Latest Assessment & Plan 1) UTI (urinary tract infection) Current Visit: Yes Status: Acute Assessment & Plan: -UA suspicious for UTI, will treat with rocephin empirically, follow culture 11/21: -Culture with gram - will continue rocephin Code(s): N39.0 - URINARY TRACT INFECTION, SITE NOT SPECIFIED (2) Hypercalcemia Current Visit: Yes Status: Acute Assessment & Plan: -IVF -parathyroid/vitamin D -Recheck in a.m. 11/21: -improving -continue IVF 11/22: -add solumedrol - unable to take oral Code(s): E83.52 - HYPERCALCEMIA (3) HTN (hypertension) Current Visit: Yes Status: Acute Assessment & Plan: -stable, continue to monitor Code(s): I10 - ESSENTIAL (PRIMARY) HYPERTENSION (4) Hypokalemia Current Visit: Yes Status: Acute Assessment & Plan: -Received 40meq IV in ED, will recheck at 1641- replenish per protocol -tele 11/21: -at 3.1 today, will infuse 20meq of K+, recheck this afternoon 11/22: -replenish Code(s): E87.6 - HYPOKALEMIA (5) Hyponatremia Current Visit: Yes Status: Acute Assessment & Plan: -NS at 100mls/hr -most likely due to hypovolemia - poor intake -BMP q 4 hours 11/21: -improving with IVF now at 131>127 11/22: -resolved Code(s): E87.1 - HYPO-OSMOLALITY AND HYPONATREMIA (6) ALS (amyotrophic lateral sclerosis) Current Visit: Yes Status: Chronic Assessment & Plan: -noted, here for PEG placement - family to decide if they are able to help with feedings -surgery consulted - will place 11/22/23 unless family decides to go home with hospice care only -pt refuses SNF placement 11/22: -No longer wishes to have PEG placement, requesting home with hospice - refuses placement. Recommended SNF as pt needs 24 hour care and family not able to help. APS to assess. [facility] consulted for Hospice services 11/23: -Hospice and private nursing care have been set up for patient per his wishes to remain at home on hospice Code(s): N39.0 - URINARY TRACT INFECTION, SITE NOT SPECIFIED I spent 45 minutes [id number] with the patient on the day of discharge performing discharge exam, discussing hospital stay and discharge instructions with patient and caregivers, preparation of discharge records, prescriptions & referral forms and addressing any questions/concerns the patient had as documented above. - Vitals & Intake/Output Vital Signs: Vital Signs Temperature 99.0 F 11/24/23 03:48 Pulse Rate 127 H 11/24/23 03:48 Respiratory Rate 19 11/24/23 04:00 Blood Pressure 151/84 11/23/23 23:59 O2 Sat by Pulse Oximetry 95 11/24/23 03:48 Intake & Output: Intake & Output 11/21/23 11/22/23 11/23/23 11/24/23 11:59 11:59 11:59 11:59 Intake Total 1244 80 4869 Output Total 750 1575 1500 Balance 494 -1495 3369 Weight 52.9 kg 52.9 kg - Lab Result Diagrams: 11/24/23 05:20 11/24/23 05:20 Lab Results-Last 24 Hrs: Lab Results-Last 24 Hours 11/22/23 11/23/23 11/23/23 Range/Units 05:16 05:20 05:20 WBC 9.6 H (4.23-9.07) x10^3/uL RBC 3.78 L (4.63-6.08) x10^6/uL Hgb 10.2 L (13.7-17.5) g/dL Hct 30.8 L (40.1-51.0) % MCV 81.5 (79.0-92.2) fL MCH 27.0 (25.7-32.2) pg MCHC 33.1 (32.3-36.5) g/dL RDW 14.3 (11.6-14.4) % Plt Count 259 (163-337) x10^3/uL MPV 10.1 (9.4-12.4) fL Gran % 83.6 H (34.0-67.9) % Immature Gran % (Auto) 0.3 (0.001-0.429) % Nucleat RBC Rel Count 0.0 (0.00-0.2) % Eos # (Auto) 0.27 (0.04-0.54) x10^3/uL Immature Gran # (Auto) 0.03 (0.001-0.031) x10^3u/L Absolute Lymphs (auto) 0.64 L (1.32-3.57) x10^3/uL Absolute Monos (auto) 0.60 (0.30-0.82) x10^3/uL Absolute Nucleated RBC 0.00 (0.00-0.012) x10^3u/L Lymphocytes % 6.7 L (21.8-53.1) % Monocytes % 6.3 (5.3-12.2) % Eosinophils % 2.8 (0.8-7.0) % Basophils % 0.3 (0.2-1.2) % Absolute Granulocytes 8.00 H (1.78-5.38) x10^3/uL Basophils # 0.03 (0.01-0.08) x10^3/uL Sodium 138 D (135-145) mmol/L Potassium 3.2 L (3.5-5.1) mmol/L Chloride 101 (98-107) mmol/L Carbon Dioxide 28 (22-30) mmol/L Anion Gap 12.8 (5-15) MEQ/L BUN 18 (9-20) mg/dL Creatinine 0.99 (0.66-1.25) mg/dL Estimated GFR 86.7 ML/MIN Glucose 56 L (74-106) mg/dL POC Glucometer (50 to 500) mg/dL Calcium 13.4 H* (8.4-10.2) mg/dL Total Bilirubin 0.90 (0.2-1.3) mg/dL AST 28 (17-59) U/L ALT 14 (0-50) U/L Alkaline Phosphatase 148 H (38-126) U/L Serum Total Protein 6.8 (6.3-8.2) g/dL Albumin 3.3 L (3.5-5.0) g/dL Vitamin D 25-Hydroxy Pending PTH Intact Whole Molec 7 L (15-65) pg/mL 11/23/23 11/23/23 11/23/23 Range/Units 06:31 07:51 17:10 WBC (4.23-9.07) x10^3/uL RBC (4.63-6.08) x10^6/uL Hgb (13.7-17.5) g/dL Hct (40.1-51.0) % MCV (79.0-92.2) fL MCH (25.7-32.2) pg MCHC (32.3-36.5) g/dL RDW (11.6-14.4) % Plt Count (163-337) x10^3/uL MPV (9.4-12.4) fL Gran % (34.0-67.9) % Immature Gran % (Auto) (0.001-0.429) % Nucleat RBC Rel Count (0.00-0.2) % Eos # (Auto) (0.04-0.54) x10^3/uL Immature Gran # (Auto) (0.001-0.031) x10^3u/L Absolute Lymphs (auto) (1.32-3.57) x10^3/uL Absolute Monos (auto) (0.30-0.82) x10^3/uL Absolute Nucleated RBC (0.00-0.012) x10^3u/L Lymphocytes % (21.8-53.1) % Monocytes % (5.3-12.2) % Eosinophils % (0.8-7.0) % Basophils % (0.2-1.2) % Absolute Granulocytes (1.78-5.38) x10^3/uL Basophils # (0.01-0.08) x10^3/uL Sodium (135-145) mmol/L Potassium 3.5 (3.5-5.1) mmol/L Chloride (98-107) mmol/L Carbon Dioxide (22-30) mmol/L Anion Gap (5-15) MEQ/L BUN (9-20) mg/dL Creatinine (0.66-1.25) mg/dL Estimated GFR ML/MIN Glucose (74-106) mg/dL POC Glucometer 48 L* 154 H (50 to 500) mg/dL Calcium (8.4-10.2) mg/dL Total Bilirubin (0.2-1.3) mg/dL AST (17-59) U/L ALT (0-50) U/L Alkaline Phosphatase (38-126) U/L Serum Total Protein (6.3-8.2) g/dL Albumin (3.5-5.0) g/dL Vitamin D 25-Hydroxy PTH Intact Whole Molec (15-65) pg/mL Micro Results-Entire Visit: Microbiology 11/21/23 13:51 Urine Culture - Preliminary Catherized GRAM NEGATIVE ID AND SENSITIVITY PENDING Discharge Exam General Appearance: no apparent distress, cachetic Neurologic Exam: alert, oriented x 3, cooperative Eye Exam: PERRL Ears, Nose, Throat Exam: normal ENT inspection Respiratory Exam: normal breath sounds, lungs clear Cardiovascular Exam: regular rate/rhythm, normal heart sounds Gastrointestinal/Abdomen Exam: normal bowel sounds Male Genitalia Exam: deferred Rectal Exam: deferred Back Exam: normal inspection Extremity Exam: normal inspection Wound Assessment: Skin/Wound Assessment Wound/Incision Assessment Start: 11/21/23 17:11 Text: Status: Active Freq: Q6H Protocol: Document 11/24/23 02:00 MP (Rec: 11/24/23 03:18 MP [id number]) Wound/Incision Assessment Back Wound Assessment Shift Assessment Wound Type PRESSURE AREAS Wound Stage Stage I Drainage Amount None General Appearance Open to air Surrounding Tissue [place] Comment MULTIPLE PRESSURE AREAS TO UPPER BUTTOCKS AND BACK ALONG SPINE AND RIBS, BARRIER CREAM APPLIED Buttock Wound Assessment Shift Assessment Wound Type SHEARING Wound Stage Non Pressure Wound Dressing Status Changed Drainage Amount None Surrounding Tissue [place] Comment MEPILEX IN PLACE Wound Photo Photo Taken Yes Final Diagnosis/Problem List - Final Discharge Diagnosis/Problem (1) UTI (urinary tract infection) Current Visit: Yes Status: Acute Code(s): N39.0 - URINARY TRACT INFECTION, SITE NOT SPECIFIED (2) Hypercalcemia Current Visit: Yes Status: Acute Code(s): E83.52 - HYPERCALCEMIA (3) HTN (hypertension) Current Visit: Yes Status: Acute Code(s): I10 - ESSENTIAL (PRIMARY) HYPERT ENSION (4) Hypokalemia Current Visit: Yes Status: Acute Code(s): E87.6 - HYPOKALEMIA (5) Hyponatremia Current Visit: Yes Status: Acute Code(s): E87.1 - HYPO-OSMOLALITY AND HYPONATREMIA (6) ALS (amyotrophic lateral sclerosis) Current Visit: Yes Status: Chronic Code(s): G12.21 - AMYOTROPHIC LATERAL SCLEROSIS - Discharge Disposition: Home, Self-Care Condition: Stable Prescriptions: Continue Tramadol HCl 50 mg [Ultram 50 mg] 50 mg PO Q6HPRN PRN PRN Reason: Pain Sertraline HCl [Zoloft] 100 mg PO HS Benzonatate 100 mg PO TIDPRN PRN PRN Reason: Cough Cholecalciferol (Vitamin D3) [Vitamin D3] 2,000 units PO UD Scopolamine [Transderm-Scop] 1 each TD Q3D Gabapentin 16 ml PO QID Bisacodyl 10 mg [Dulcolax 10 MG SUPP] 10 mg RC DAILY PRN PRN PRN Reason: Constipation Acetaminophen 325Mg [Feverall 325 mg] 650 mg RC Q4H PRN PRN PRN Reason: Fever Dimethicone [[place] Butt Paste Barrier] 113 gm TP DAILY Albuterol 2.5 mg/3 ml Neb [Proventil 2.5 mg/3 ml Neb] 1 neb IH QID PRN PRN PRN Reason: Shortness Of Breath Sodium Chloride [Saline Nasal Mist] 2 sprays INTRANASAL TID PRN Oxybutynin Chloride [Oxybutynin Chloride ER] 10 mg PO DAILY Ondansetron [Ondansetron Odt] 4 mg PO Q6H PRN PRN PRN Reason: Nausea/Vomiting Morphine Sulfate 0.5 ml PO Q4H PRN PRN PRN Reason: Pain Polyethylene Glycol 3350 17 gm [Miralax Powder 17GM PACKET] 17 gm PO DAILY PRN PRN PRN Reason: Constipation LORazepam [Lorazepam Intensol] 0.5 ml PO BID PRN Ibuprofen 400 mg PO BIDPRN PRN PRN Reason: Pain Hyoscyamine Sulfate 0.125 mg SL Q4H PRN PRN PRN Reason: SECRETIONS Sodium Phosphate,[place]-Dibasic [Enema] 1 enema RC DAILY PRN PRN PRN Reason: Constipation Additional Instructions: [facility] TO ASSUME CARE OF PATIENT
[2023-11-24 05:29] LABS: Absolute Neutrophil Ct (ANC) 9.37 x10^3/uL (1.78-5.38); BASOPHIL % 0.2 % (0.2-1.2); Basophil (Absolute #) 0.02 x10^3/uL (0.01-0.08); Eosinophil % 0.1 % (0.8-7.0); Eosinophil (Absolute #) 0.01 x10^3/uL (0.04-0.54); Hematocrit 31.1 % (40.1-51.0); Hemoglobin 10.3 g/dL (13.7-17.5); IMMATURE GRAN # 0.04 x10^3u/L (0.001-0.031); IMMATURE GRAN % 0.4 % (0.001-0.429); Lymphocyte (Absolute #) 0.22 x10^3/uL (1.32-3.57); Lymphocytes % 2.2 % (21.8-53.1); Mean Cell Volume 82.1 fL (79.0-92.2); Mean Corpuscular Hemoglobin 27.2 pg (25.7-32.2); Mean Corpuscular Hgb Concent. 33.1 g/dL (32.3-36.5); Mean Platelet Volume 10.3 fL (9.4-12.4); Monocyte (Absolute #) 0.42 x10^3/uL (0.30-0.82); Monocytes % 4.2 % (5.3-12.2); Neutrophil % 92.9 % (34.0-67.9); Platelet Count 210 x10^3/uL (163-337); Red Blood Count 3.79 x10^6/uL (4.63-6.08); Red Cell Distribution Width 14.3 % (11.6-14.4); White Blood Count 10.1 x10^3/uL (4.23-9.07)
[2023-11-24 05:53] LABS: ALBUMIN 2.7 g/dL (3.5-5.0); ANION GAP 13.7 MEQ/L (5-15); BILIRUBIN,TOTAL 1.1 mg/dL (0.2-1.3); Creatinine 1 0.9 mg/dL (0.66-1.25); EST GLOMERULAR FILTRATION RATE 97.2 ML/MIN; Potassium 3.2 mmol/L (3.5-5.1); Total Protein 5.8 g/dL (6.3-8.2)
[2023-11-24 05:59] LABS: Calcium 12.6 mg/dL (8.4-10.2)
[2023-11-24 07:31] LABS: Slide Review 1 YES
[2023-11-24 07:46] VITALS: BP 164/86; PULSE 102; RESP 16; TEMP 98.4; O2SAT 92
[2023-11-24 09:15] LABS: Vitamin D Total (SENT OUT) 254.8 ng/mL (30.0-100.0)
[2023-11-24] MEDS: MORPHINE SULFATE 2 MG INJ IM ONE (09:22)
[2023-11-24] MEDS: POTASSIUM CHLORIDE 20 mEq IN WATER 100ML 100 ML IV ONE (11:23)
[2023-11-24] MEDS: Maxipime 2 GM** 2 G in Dextrose 5%/Water IV Soln. 100ML PLUS BAG 100 ML IV SCH (11:23)
== END 2023-11-24 10:49 | disposition hospice, home (50) ==
LOC: ED 10:39 → MED SURG 15:05
PROVIDERS: ADMIT Internal Medicine; ATTEND Internal Medicine
DX: N39.0 Urinary tract infection, site not specified (principal); E83.52 Hypercalcemia; I10 Essential (primary) hypertension; E87.6 Hypokalemia; E87.1 Hypo-osmolality and hyponatremia; G12.21 Amyotrophic lateral sclerosis; L89.101 Pressure ulcer of unspecified part of back, stage 1; L89.309 Pressure ulcer of unspecified buttock, unspecified stage; Z79.899 Other long term (current) drug therapy
CPT/HCPCS: 36000; 36415; 51702; 80053; 81001; 82306; 82330; 82947; 83735; 83970; 84132; 85025; 85610; 85730; 87077; 87086; 87186; 93005; 93041; 94760; 94762; 96360; 96365; 96366; 96368; 99285; Q3014; 93268; J0696; J2270; J2919; J3475; J3480; G0378